=== PATIENT | female | born 1985 | race Caucasian/White ===

== ENCOUNTER 2020-04-23 22:14 | Emergency (ER) | payer MEDICAID, OTHER, SELFPAY ==
[2020-04-23 22:15] VITALS: BP 135/87; PULSE 93; RESP 20; TEMP 36.8; O2SAT 100
--- NOTE | 2020-04-23 22:40 | DI.CT.S_ITS ---
PROCEDURE: CT HEAD/BRAIN WO CON INDICATIONS: Occipitap/frontal headache. H/O MS. TECHNIQUE: Noncontrast 4.5 mm thick angled axial sections acquired from the foramen magnum to the vertex, with coronal and sagittal reformats. For radiation dose reduction, the following was used: automated exposure control, adjustment of mA and/or kV according to patient size. COMPARISON: [facility], CT, HEAD WITHOUT CONTRAST, 07/27/2008, 12:51. FINDINGS: Image quality: Excellent. CSF spaces: Basal cisterns are patent. No extra-axial fluid collections. Ventricles are normal in size and shape. Brain: No midline shift. No intracranial masses or hemorrhage. Lindsey-white matter interface is normal. Skull and face: Calvarium and visualized facial bones are intact, without suspicious lesions. Sinuses: Visualized sinuses and mastoids are clear. IMPRESSION: No acute intracranial disease process. Dictated by: Idalmis Jay MD, PhD on 04/24/2020 at 7:10 Approved by: Idalmis Jay MD, PhD on 04/24/2020 at 7:11
--- NOTE | 2020-04-23 22:41 | ED_ITS ---
HPI - Headache General Chief Complaint: Headache Stated Complaint: head pressure Time Seen by Provider: 04/23/20 22:31 Source: patient Mode of arrival: Wheelchair Limitations: no limitations History of Present Illness HPI Narrative: The patient complains of head pressure for 3 days. She has facial pain, but she also has acceptable pain. She has had no recent fever, sore throat or changing cough. She is a smoker, she has occasional dry cough. She denies ear pressure, but does have sinus pressure. She has no neck stiffness. She has a history of optic neuritis, she is nearly blind. She has chest discomfort. She has no abdominal discomfort, no nausea vomiting. She has no focal numbness or weakness. She has a local PCM. She has not seen her neurologist in [place] for over a year. She is currently on no medications. Related Data Home Medications Medication Instructions Recorded Confirmed [BCP] #0 07/28/08 Previous Rx's Medication Instructions Recorded ibuprofen 600 mg PO Q6-8H PRN #60 tab 04/24/20 ondansetron 4 mg PO Q4H PRN #20 tab 04/24/20 Allergies Allergy/AdvReac Type Severity Reaction Status Date / Time No Known Drug Allergies Allergy Verified 04/23/20 22:41 Review of Systems Review of Systems ROS Unobtainable: All systems reviewed & are unremarkable except as noted in HPI and below Constitutional Constitutional: Denies body ache(s), Denies chills, Reports fatigue, Denies fever(s), Reports headache(s) and Denies weakness Eyes Eyes: Reports as per HPI ENT Ears, Nose, Mouth, and Throat: Denies vertigo, Denies dizziness, Denies otalgia, Reports headache(s) and Denies sore throat Cardiovascular Cardiovascular: Denies chest pain, Denies syncope, Denies rapid heart rate and Denies dyspnea Respiratory Respiratory: Denies change in phlegm color, Denies chest congestion, Reports cough, Denies pain with cough and Denies dyspnea Gastrointestinal Gastrointestinal: Denies abdominal pain, Denies change in bowel habits, Denies diarrhea, Denies nausea and Denies vomiting Genitourinary Genitourinary: Denies dysuria Genitourinary: Denies dysuria Musculoskeletal Musculoskeletal: Denies back pain and Denies arthralgias Integumentary/Breasts Skin/Breast: Reports pruritus, Denies erythema, Denies rash and Reports wounds Neurologic Neurologic: Denies vertigo, Denies dizziness, Denies syncope, Reports headache(s) and Denies weakness Endocrine Endocrine: Reports fatigue Patient History Medical History (Updated 04/24/20 @ 00:28 by Blayne Anne MD) Multiple sclerosis (Acute) Optic neuritis (Acute) Surgical History (Updated 04/23/20 @ 22:44 by Blayne Anne MD) No significant past surgical history (Acute) Social History Smoking Status: Current every day smoker Smoking Status: Current every day smoker alcohol intake frequency: a few times a month Substance Use Type: marijuana Exam Initial Vital Signs Initial Vital Signs: Vital Signs Temperature 98.3 F 04/23/20 22:15 Pulse Rate 93 H 04/23/20 22:15 Respiratory Rate 20 04/23/20 22:15 Blood Pressure 135/87 04/23/20 22:15 Pulse Oximetry 100 04/23/20 22:15 Const General: cooperative and well developed Nutritional Appearance: well nourished [facility] Head: normocephalic and atraumatic Ears: TM's normal bilaterally Nose: nares normal Face and sinus: sinus tenderness ethmoid and maxillary Mouth: oral mucosae normal Throat: posterior oropharynx normal Eyes Cornea: other (Not clearly visualized) Pupils: PERRL Other: She can see shadows only. Neck Neck: normal visual inspection, supple and No tender Resp Effort & Inspection: normal respiratory effort and able to speak in complete sentences Auscultation: clear to auscultation bilaterally Cardio Rate: regular rate Rhythm: regular rhythm Heart Sounds: S1 normal, S2 normal, no click, no gallops, no murmurs and no rubs Pulses: normal peripheral pulses GI Inspection: non-distended Palpation: soft, no hepatosplenomegaly and No tender Auscultation: normal bowel sounds Back/Spine/Pelvis Back: No back tenderness Skin General: no rashes or lesions noted, No jaundice and No petechiae Neuro General: patient alert, patient oriented x3, gait normal and no focal motor deficits Speech: speech normal Extrem General: full ROM and no clubbing, cyanosis or edema Psych Appearance: grossly normal Mental Status: mental status grossly normal Course Course Course Narrative: Her headache has resolved with IV Toradol, Reglan and Benadryl and IV fluids. Her head CT is normal. She is discharged on Motrin and Zofran. Orders Ordered: ED Orders 04/23/20 22:40 CT head/brain wo con Stat 04/23/20 22:41 Complete Blood Count AUTO DIFF Stat Comprehensive Metabolic Panel Stat Discontinued Medications Diphenhydramine HCl (Benadryl) 25 mg IV NOW ONE Stop: 04/23/20 22:40 Last Admin: 04/23/20 23:05 Dose: 25 mg Documented by: FARRAH Sodium Chloride (Normal Saline 0.9%) 1,000 mls @ 1,000 mls/hr IV BOLUS ONE Stop: 04/23/20 23:38 Last Infusion: 04/24/20 00:26 Dose: 1,000 mls/hr Documented by: Admin: 04/23/20 23:05 Dose: 1,000 mls/hr Documented by: FARRAH Ketorolac Tromethamine (Toradol) 30 mg IV NOW ONE Stop: 04/23/20 22:40 Last Admin: 04/23/20 23:05 Dose: 30 mg Documented by: FARRAH Metoclopramide HCl (Reglan) 10 mg IV NOW ONE Stop: 04/23/20 22:40 Last Admin: 04/23/20 23:05 Dose: 10 mg Documented by: FARRAH Vital Signs Vital signs: Vital Signs - 8 hr 04/23/20 22:15 04/24/20 00:39 Temperature 98.3 F Pulse Rate 93 H 87 Respiratory Rate 20 18 Blood Pressure 135/87 108/56 L Pulse Oximetry 100 99 MDM - Headache Lab Data Result diagrams: 04/23/20 22:41 04/23/20 22:41 Labs: Lab Results 04/23/20 04/23/20 Range/Units 22:41 22:41 WBC 6.9 (4.5-11.0) X10^3/uL RBC 4.55 (4.0-5.2) X10^6/uL Hgb 13.8 (12.0-16.0) g/dL Hct 41.4 (36-46) % MCV 91.1 (80-100) fL MCH 30.4 (26-34) PG MCHC 33.4 (30-36) % RDW 12.5 (11.6-14.8) % Plt Count 297 (150-400) X10^3/uL Neut % (Auto) Not Reportable Lymph % (Auto) Not Reportable [place] % (Auto) Not Reportable Eos % (Auto) Not Reportable Baso % (Auto) Not Reportable Lymph # (Auto) Not Reportable [place] # (Auto) Not Reportable Baso # (Auto) Not Reportable Total Counted 100 Seg Neutrophils % 57.0 (38-70) % Band Neutrophils % 5.0 (3-7) % Lymphocytes % (Manual) 18.0 L (25-45) % Atypical Lymphs % 9.0 H ( - 0) % Monocytes % (Manual) 8.0 (2-11) % Eosinophils % (Manual) 3.0 (2-4) % Neutrophils # (Manual) 4278 (9787-5552) /uL RBC Morphology Normal morphology Sodium 136 L (137-145) mmol/L Potassium 3.8 (3.4-5.1) mmol/L Chloride 106 (98-107) mmol/L Carbon Dioxide 25 (22-32) mmol/L BUN 8 (7-17) mg/dL Creatinine 0.54 (0.52-1.04) mg/dL Estimated GFR > 60.0 (>60) mL/min BUN/Creatinine Ratio 14.8 (6-22) Glucose 113 H (70-100) mg/dL Calcium 8.6 (8.4-10.2) mg/dL Total Bilirubin 0.6 (0.2-1.3) mg/dL AST 37 H (14-36) IU/L ALT 28 (<35) IU/L Alkaline Phosphatase 49 (38-126) U/L Total Protein 7.2 (6.3-8.2) g/dL Albumin 4.0 (3.5-5.0) g/dL Globulin 3.2 (1.7-4.1) g/dL Albumin/Globulin Ratio 1.3 (1.0-2.8) Imaging Data CT scan - head: Radiologist's Impression: No acute findings Discharge Plan Departure Patient Disposition: Home Clinical Impression: Multiple sclerosis Headache Qualifiers: Headache type: tension-type Headache chronicity pattern: acute headache Intractability: intractable Qualified Code(s): G44.201 - Tension-type headache, unspecified, intractable Discharge Date/Time: 04/24/20 00:41 Instructions: DI for Headache Activity Restrictions/Additional Instructions: Ibuprofen every 6-8 hours as needed for headache. Zofran every 4-6 hours as needed for nausea. Rest, drink plenty of fluids. I would recommend you arrange follow-up evaluation with your primary care do ctor, and your neurologist. Return here as needed. Prescriptions: New ibuprofen 600 mg tablet 600 mg PO Q6-8H PRN (Reason: pain) Qty: 60 RF: 0 ondansetron 4 mg tablet,disintegrating 4 mg PO Q4H PRN (Reason: nausea and vomiting) Qty: 20 RF: 0 No Action [BCP] Qty: 0 RF: 0
[2020-04-23 22:53] LABS: Hematocrit 41.4 % (36-46); Hemoglobin 13.8 g/dL (12.0-16.0); Mean Corpuscular HGB Conc 33.4 % (30-36); Mean Corpuscular Hemoglobin 30.4 PG (26-34); Mean Corpuscular Volume 91.1 fL (80-100); Platelet Count 297 X10^3/uL (150-400); Red Blood Cell Count 4.55 X10^6/uL (4.0-5.2); Red Cell Distribution Width 12.5 % (11.6-14.8); White Blood Cell Count 6.9 X10^3/uL (4.5-11.0)
[2020-04-23 22:54] LABS: Add Manual Diff / Slide Review YES
[2020-04-23 23:05] LABS: Alanine Aminotransferase 28 IU/L (<35); Albumin Globulin Ratio 1.3 (1.0-2.8); Alkaline Phosphatase 49 U/L (38-126); BUN Creatinine Ratio 14.8 (6-22); Bilirubin Total 0.6 mg/dL (0.2-1.3); Blood Urea Nitrogen 8 mg/dL (7-17); Calcium 8.6 mg/dL (8.4-10.2); Carbon Dioxide 25 mmol/L (22-32); Chloride 106 mmol/L (98-107); Estimated Glomerular Filt Rate > 60.0 mL/min (>60); Globulin 3.2 g/dL (1.7-4.1); Glucose 113 mg/dL (70-100); Sodium 136 mmol/L (137-145); Total Protein 7.2 g/dL (6.3-8.2)
[2020-04-23] MEDS: diphenhydrAMINE 50 MG/ML VIAL 25 MG IV (23:05)
[2020-04-23] MEDS: KETOROLAC 60 MG/2 ML VIAL 30 MG IV (23:05)
[2020-04-23] MEDS: METOCLOPRAMIDE 10 MG/2 ML INJ IV (23:05)
[2020-04-23] MEDS: SODIUM CHLORIDE 0.9% 1,000 ML 1000 ML IV (23:05)
[2020-04-23 23:07] LABS: HEMOLYSIS 81 (0-50)
[2020-04-23 23:08] LABS: Aspartate Aminotransferase 37 IU/L (14-36)
[2020-04-23 23:09] LABS: Potassium 3.8 mmol/L (3.4-5.1)
[2020-04-24 00:39] VITALS: BP 108/56; PULSE 87; RESP 18; O2SAT 99
[2020-04-24 00:48] LABS: Neutrophils Absolute Manual 4278 /uL (3000-5900); Total Cells Counted 100
[2020-04-24 00:49] LABS: RBC Morphology Normal Morphology
== END 2020-04-24 00:41 | disposition home or self-care (01) ==
PROVIDERS: Emergency Provider Emergency Medicine
DX: G35 Multiple sclerosis (principal); G44.201 Tension-type headache, unspecified, intractable; J41.0 Simple chronic bronchitis
CPT/HCPCS: 36415; 70450; 80053; 85025; 93005; 93010; 96361; 96374; 96375; 99284; J1200; J1885; J2765

== ENCOUNTER 2021-01-01 23:57 | Emergency (ER) | payer OTHER, MEDICAID, SELFPAY ==
[2021-01-02 00:11] VITALS: PULSE 72; RESP 22; TEMP 37.2; O2SAT 98
--- NOTE | 2021-01-02 00:23 | DI.CT.S_ITS ---
PROCEDURE: CT HEAD/BRAIN WO CON INDICATIONS: loss of vision in Left eye TECHNIQUE: Noncontrast 4.5 mm thick angled axial sections acquired from the foramen magnum to the vertex, with coronal and sagittal reformats. For radiation dose reduction, the following was used: automated exposure control, adjustment of mA and/or kV according to patient size. COMPARISON: [facility], CT, CT HEAD/BRAIN WO CON, 04/23/2020, 22:50. [facility], CT, HEAD WITHOUT CONTRAST, 07/27/2008, 12:51. FINDINGS: Image quality: Excellent. CSF spaces: Basal cisterns are patent. No extra-axial fluid collections. Ventricles are normal in size and shape. Brain: No midline shift. No intracranial masses or hemorrhage. Lindsey-white matter interface is normal. Skull and face: Calvarium and visualized facial bones are intact, without suspicious lesions. Sinuses: Visualized sinuses and mastoids are clear. IMPRESSION: No acute disease. No orbit abnormality is identified. Stroke protocol MRI may be warranted. Dictated by: Harshad Souza M.D. on 01/02/2021 at 7:24 Approved by: Harshad Souza M.D. on 01/02/2021 at 7:24
--- NOTE | 2021-01-02 00:49 | ED.NEUROSD ---
HPI - Neuro Symptoms/Deficit General Chief Complaint: Neuro Symptoms/Deficit Stated Complaint: sudden loss of sight this morning Time Seen by Provider: 01/02/21 00:19 Source: patient Mode of arrival: Ambulatory History of Present Illness HPI Narrative: Patient is a 35-year-old female. States she has a history of multiple sclerosis. 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 in her left eye. She states that the blindness in her right eye has been secondary to optic neuritis. She does not see a MS specialist. Does not see a neurologist. Does not have a primary doctor. She states that at some point after waking up this morning the ?tunnel vision? in her left eye started to become worse. She states that it has progressed throughout the day until approximately 2 hours prior to arrival in the emergency department when she stated that her left eye went completely black. That is when she thought that she should come in to be evaluated. She does describe a slight headache. There has been no trauma. She reports no other symptoms. On Anticoagulants: No Related Data Home Medications Medication Instructions Recorded Confirmed [BCP] #0 07/28/08 Previous Rx's Medication Instructions Recorded ibuprofen 600 mg tablet 600 mg PO Q6-8H PRN #60 tab 04/24/20 ondansetron 4 mg disintegrating 4 mg PO Q4H PRN #20 tab 04/24/20 tablet Allergies Allergy/AdvReac Type Severity Reaction Status Date / Time No Known Drug Allergies Allergy Verified 04/23/20 22:41 Review of Systems Constitutional Constitutional: Denies fatigue and Reports headache(s) Eyes Eyes: Reports as per HPI and Reports loss of vision Comments: New loss of vision left eye ENT Ears, Nose, Mouth, and Throat: Denies vertigo, Denies dizziness and Reports headache(s) Cardiovascular Comments: Denies chest pain Respiratory Comments: Denies shortness of breath Gastrointestinal Comments: Denies abdominal pain Musculoskeletal Musculoskeletal: Reports system reviewed and no additional complaints, except as documented, Denies numbness and Denies tingling Integumentary/Breasts Skin/Breast: Reports system reviewed and no additional complaints, except as documented Neurologic Neurologic: Denies behavioral changes, Denies confusion, Denies vertigo, Denies dizziness, Reports headache(s), Reports loss of vision, Denies memory loss, Denies numbness and Denies tingling Psychiatric Psychiatric: Denies behavioral changes, Denies confusion and Denies memory loss Endocrine Endocrine: Denies fatigue Hematologic/Lymphatic On Anticoagulants: No Allergic/Immunologic Allergic/Immunologic: Reports system reviewed and no additional complaints, except as documented Patient History Medical History Multiple sclerosis Optic neuritis Surgical History (Updated 04/23/20 @ 22:44 by Blayne Anne MD) No significant past surgical history Social History Smoking Status: Current every day smoker Smoking Status: Current every day smoker alcohol intake frequency: a few times a month Substance Use Type: marijuana Exam Initial Vital Signs Initial Vital Signs: Vital Signs Temperature 98.9 F 01/02/21 00:11 Pulse Rate 72 01/02/21 00:11 Respiratory Rate 22 01/02/21 00:11 Pulse Oximetry 98 01/02/21 00:11 Const General: cooperative, healthy appearing and comfortable HENMT Head: normal to inspection and normocephalic Ears: hearing grossly normal bilaterally Face and sinus: normal facial exam Eyes Other: Patient has a visual acuity of 0 bilaterally. She only reports she occasionally see some ?conner ?visions in her left eye otherwise there is no vision in either eye. Her pupils are 8 mm and has very minimal if any reaction to light. She reports no ability to see the light. She can move her eyes in all directions. Interocular pressure in right eye was 16. Interocular pressure left eye was 17. Conjunctivae unremarkable. Sclera unremarkable. Eyelids unremarkable. Resp Effort & Inspection: normal respiratory effort Cardio Rate: regular rate Rhythm: regular rhythm Skin General: no rashes or lesions noted Neuro General: patient alert, patient awake and patient oriented x3 Cognition: normal cognition Speech: speech normal Motor: muscle tone normal throughout Sensory Exam: no sensory deficits noted Extrem General: normal to inspection and capillary refill normal Psych Appearance: grossly normal and well kempt Course Orders Ordered: ED Orders 01/02/21 00:23 CT head/brain wo con Stat 01/02/21 01:04 Basic Metabolic Panel Stat C-Reactive Protein Quant Stat Complete Blood Count AUTO DIFF Stat Erythrocyte Sedimentation Rate Stat Test Serum,Qual Stat Vital Signs Vital signs: Vital Signs - 8 hr 01/02/21 00:11 07/08/21 01:11 Temperature 98.9 F Pulse Rate 72 72 Respiratory Rate 22 18 Blood Pressure 119/70 Pulse Oximetry 98 97 MDM - Neuro Symptoms/Deficit Lab Data Attestation: I reviewed the patient's lab results. Result diagrams: 01/02/21 01:04 01/02/21 01:04 Labs: Lab Results 01/02/21 01/02/21 01/02/21 Range/Units 01:04 01:04 01:04 WBC 7.5 (4.5-11.0) X10^3/uL RBC 4.59 (4.0-5.2) X10^6/uL Hgb 14.5 (12.0-16.0) g/dL Hct 42.6 (36-46) % MCV 92.8 (80-100) fL MCH 31.5 (26-34) PG MCHC 33.9 (30-36) % RDW 12.0 (11.6-14.8) % Plt Count 328 (150-400) X10^3/uL Neut % (Auto) 59.4 (50-75) % Lymph % (Auto) 28.1 (25-40) % [place] % (Auto) 7.1 (3-14) % Eos % (Auto) 2.5 (2-4) % Baso % (Auto) 2.9 H (0-2) % Neut # (Auto) 4400 (1179-8120) /uL Lymph # (Auto) 2100 (0755-0486) /uL [place] # (Auto) 500 (0-900) /uL Eos # (Auto) 200 (0-450) /uL Baso # (Auto) 200 H (0-100) /uL ESR 16 (0-20) MM/HR Sodium (137-145) mmol/L Potassium (3.4-5.1) mmol/L Chloride (98-107) mmol/L Carbon Dioxide (22-32) mmol/L BUN (7-17) mg/dL Creatinine (0.52-1.04) mg/dL Estimated GFR (>60) mL/min BUN/Creatinine Ratio (6-22) Glucose (70-100) mg/dL Calcium (8.4-10.2) mg/dL C-Reactive Protein < 0.5 (<1.0) mg/dL Serum , Qual (Negative) 01/02/21 01/02/21 Range/Units 01:04 01:04 WBC (4.5-11.0) X10^3/uL RBC (4.0-5.2) X10^6/uL Hgb (12.0-16.0) g/dL Hct (36-46) % MCV (80-100) fL MCH (26-34) PG MCHC (30-36) % RDW (11.6-14.8) % Plt Count (150-400) X10^3/uL Neut % (Auto) (50-75) % Lymph % (Auto) (25-40) % [place] % (Auto) (3-14) % Eos % (Auto) (2-4) % Baso % (Auto) (0-2) % Neut # (Auto) (0869-2262) /uL Lymph # (Auto) (7514-5669) /uL [place] # (Auto) (0-900) /uL Eos # (Auto) (0-450) /uL Baso # (Auto) (0-100) /uL ESR (0-20) MM/HR Sodium 138 (137-145) mmol/L Potassium 4.1 (3.4-5.1) mmol/L Chloride 109 H (98-107) mmol/L Carbon Dioxide 25 (22-32) mmol/L BUN 14 (7-17) mg/dL Creatinine 0.82 (0.52-1.04) mg/dL Estimated GFR > 60.0 (>60) mL/min BUN/Creatinine Ratio 17.1 (6-22) Glucose 101 H (70-100) mg/dL Calcium 9.0 (8.4-10.2) mg/dL C-Reactive Protein (<1.0) mg/dL Serum , Qual Negative (Negative) Imaging Data CT scan - head: Radiologist's Impression: No acute changes MDM Narrative Medical decision making narrative: Patient is alert oriented x3. Has a normal neurologic exam other than a new loss of vision in her left eye which seems to have progressively worsened since this morning. Her ESR/CRP are all unremarkable. Her head CT shows no acute pathology. Her pupils are essentially fixed and dilated bilateral with normal interocular pressures. The rest of her eye exam is unremarkable. I did discuss the case with Dr. Resendiz with Ophthalmology at [facility] who stated that the patient should be transferred to their facility for their evaluation. He is the accepting provider. He recommended holding on any steroids for now. I did discuss this with the patient and her . They state that they are comfortable driving by private vehicle. I do not feel this is unreasonable. They were given instructions and understands the importance of going directly to [facility] Emergency Department. Discharge Plan Departure Patient Disposition: [facility] Clinical Impression: Binocular vision loss Activity Restrictions/Additional Instructions: Your to go directly to the emergency department at [facility] in [place] for further evaluation of your left eye vision loss. Prescriptions: No Action [BCP] Qty: 0 RF: 0 ibuprofen 600 mg tablet 600 mg PO Q6-8H PRN (Reason: pain) Qty: 60 RF: 0 ondansetron 4 mg tablet,disintegrating 4 mg PO Q4H PRN (Reason: nausea and vomiting) Qty: 20 RF: 0
[2021-01-02 01:11] VITALS: BP 119/70; PULSE 72; RESP 18; O2SAT 97
[2021-01-02 01:20] LABS: BUN Creatinine Ratio 17.1 (6-22); Blood Urea Nitrogen 14 mg/dL (7-17); Carbon Dioxide 25 mmol/L (22-32); Chloride 109 mmol/L (98-107); Estimated Glomerular Filt Rate > 60.0 mL/min (>60); Glucose 101 mg/dL (70-100); HEMOLYSIS < 15 (0-50); Potassium 4.1 mmol/L (3.4-5.1); Sodium 138 mmol/L (137-145)
[2021-01-02 01:23] LABS: C-Reactive Protein Quant < 0.5 mg/dL (<1.0)
[2021-01-02 01:29] LABS: Add Manual Diff / Slide Review NO; Basophils Absolute Auto 200 /uL (0-100); Basophils Percent Auto 2.9 % (0-2); Eosinophils Absolute Auto 200 /uL (0-450); Eosinophils Percent Auto 2.5 % (2-4); Hematocrit 42.6 % (36-46); Hemoglobin 14.5 g/dL (12.0-16.0); Lymphocytes Absolute Auto 2100 /uL (1100-4500); Lymphocytes Percent Auto 28.1 % (25-40); Mean Corpuscular HGB Conc 33.9 % (30-36); Mean Corpuscular Hemoglobin 31.5 PG (26-34); Mean Corpuscular Volume 92.8 fL (80-100); Monocytes Absolute Auto 500 /uL (0-900); Monocytes Percent Auto 7.1 % (3-14); Neutrophils Absolute Auto 4400 /uL (1500-7000); Neutrophils Percent Auto 59.4 % (50-75); Platelet Count 328 X10^3/uL (150-400); Red Blood Cell Count 4.59 X10^6/uL (4.0-5.2); White Blood Cell Count 7.5 X10^3/uL (4.5-11.0)
[2021-01-02 01:38] LABS: Pregnancy Test Serum,Qual Negative (Negative)
[2021-01-02 01:56] LABS: Erythrocyte Sedimentation Rate 16 MM/HR (0-20)
[2021-01-02 03:15] VITALS: BP 119/70; PULSE 66; RESP 18; O2SAT 97
--- NOTE | 2021-01-02 03:40 | PC.NURSE ---
[facility] report form faxed per protocol.
== END 2021-01-02 02:15 | disposition short-term general hospital (02) ==
PROVIDERS: Emergency Provider Emergency Medicine
DX: H54.3 Unqualified visual loss, both eyes (principal); R51.9 Headache, unspecified
CPT/HCPCS: 36415; 70450; 80048; 84703; 85025; 85651; 86140; 99284

== ENCOUNTER → 2021-03-26 09:21 | Outpatient (CLI) | payer OTHER, MEDICAID, SELFPAY ==
--- NOTE | 2021-03-26 10:20 | DI.CT.S_ITS ---
PROCEDURE: CT CHEST ABD PEL W CON INDICATIONS: Recurrent optic neuritis TECHNIQUE: After the administration of oral and intravenous contrast, axial sections acquired from the supraclavicular neck to the pubic symphysis. Coronal and sagittal reformats were performed. For radiation dose reduction, the following was used: automated exposure control, adjustment of mA and/or kV according to patient size. COMPARISON: None. FINDINGS: Image quality: Excellent. CHEST: Lower Neck: No enlarged lymph nodes. Thyroid: Within normal limits. Axillae: No enlarged lymph nodes. Chest Wall: Unremarkable. Lungs and Airways: No consolidation or suspicious nodules. Pleura: No pneumothorax or pleural effusions. Heart: Heart size is normal. No pericardial effusion. Thoracic Vessels: The aorta and pulmonary arteries demonstrate normal size. Mediastinum and [place]: No enlarged lymph nodes. Esophagus: No wall thickening. No hiatal hernia. ABDOMEN: Liver: Unremarkable. Gallbladder: The gallbladder demonstrates at least 1 layering gallstone, as on series 2, image 65. Biliary ducts: Unremarkable. Pancreas: Unremarkable. Spleen: Unremarkable. Incidental note is made of an accessory splenule along the hilum of the primary spleen. Adrenal Glands: Unremarkable. Kidneys and Ureters: Unremarkable. Stomach and Bowel: Stomach, small bowel loops, and colon are unremarkable. A normal appendix is incidentally noted. Peritoneum: No abnormal intraperitoneal fluid. No free air. Ventral Wall: No hernia. Abdominal Nodes: No retroperitoneal or mesenteric adenopathy by size criteria. Vessels: Aorta and inferior vena cava are normal in size. PELVIS: Pelvic Organs: The uterus appears normal for age. No adnexal masses are seen. Bladder: Unremarkable. Pelvic Nodes: No enlarged lymph nodes. Miscellaneous: No inguinal hernias are seen. Bones: Unremarkable. IMPRESSION: No significant abnormality is seen. Incidental note is made of: Gallstone Accessory splenule Normal appendix Dictated by: Dano Rucker M.D. on 03/26/2021 at 13:20 Approved by: Dano Rucker M.D. on 03/26/2021 at 13:23
== END ==
DX: H46.9 Unspecified optic neuritis (principal); H54.3 Unqualified visual loss, both eyes; K80.20 Calculus of gallbladder without cholecystitis without obstruction; F41.9 Anxiety disorder, unspecified; Z51.81 Encounter for therapeutic drug level monitoring
CPT/HCPCS: 71260; 74177

== ENCOUNTER 2021-04-11 12:07 | Emergency (ER) | payer OTHER, MEDICAID, SELFPAY ==
[2021-04-11] VITALS (10 sets, daily range): BP systolic 134–145; BP diastolic 76–85; PULSE 55–73; RESP 14–25; TEMP 35.7; O2SAT 87–100; BMI 38.2
--- NOTE | 2021-04-11 13:52 | DI.CT.S_ITS ---
PROCEDURE: CT HEAD/BRAIN WO CON INDICATIONS: head pain,recent subdural,n/v TECHNIQUE: Noncontrast 4.5 mm thick angled axial sections acquired from the foramen magnum to the vertex, with coronal and sagittal reformats. For radiation dose reduction, the following was used: automated exposure control, adjustment of mA and/or kV according to patient size. COMPARISON: [facility], CT, CT HEAD/BRAIN WO CON, 01/02/2021, 0:34. FINDINGS: Image quality: Excellent. CSF spaces: Basal cisterns are patent. Widening of the bilateral cerebral CSF spaces measuring up to 5.9 mm, likely reflecting chronic subdural hematoma/hygromas. The ventricles are symmetric in size and shape. Brain: No intraparenchymal hemorrhage or mass. Skull and face: Widening of the left lambdoid suture, compatible with a skull base fracture. Sinuses: Mucosal thickening of the sphenoid and right maxillary sinuses. IMPRESSION: 1. No acute intracranial hemorrhage. 2. Widening of the bilateral cerebral CSF spaces as detailed above, compatible with chronic subdural hematoma/hygromas. 3. Widening of the left lambdoid suture, compatible with a skull base fracture. Findings were conveyed to the ordering physician at the time of dictation. Dictated by: Adriel Betancourt M.D. on 04/11/2021 at 14:02 Approved by: Adriel Betancourt M.D. on 04/11/2021 at 14:11
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
[2021-04-11] MEDS: SODIUM CHLORIDE 0.9% 1,000 ML 1000 ML IV (16:28)
[2021-04-11] MEDS: DEXAMETHASONE 10 MG/ML VIAL IV (16:29)
[2021-04-11] MEDS: METOCLOPRAMIDE 10 MG/2 ML INJ IV (16:30)
[2021-04-11] MEDS: diphenhydrAMINE 50 MG/ML VIAL 25 MG IV (16:30)
[2021-04-11] MEDS: KETOROLAC 30 MG/ML VIAL 15 MG IV (16:30)
[2021-04-11 16:52] LABS: Alanine Aminotransferase 29 IU/L (<35); Albumin Globulin Ratio 1.4 (1.0-2.8); Alkaline Phosphatase 65 U/L (38-126); Aspartate Aminotransferase 35 IU/L (14-36); BUN Creatinine Ratio 14.9 (6-22); Bilirubin Total 0.7 mg/dL (0.2-1.3); Blood Urea Nitrogen 7 mg/dL (7-17); Calcium 8.6 mg/dL (8.4-10.2); Carbon Dioxide 21 mmol/L (22-32); Chloride 93 mmol/L (98-107); Estimated Glomerular Filt Rate > 60.0 mL/min (>60); Globulin 2.8 g/dL (1.7-4.1); Glucose 117 mg/dL (70-100); Potassium 4.1 mmol/L (3.4-5.1); Sodium 121 mmol/L (137-145); Total Protein 6.8 g/dL (6.3-8.2)
[2021-04-11 16:56] LABS: HEMOLYSIS 75 (0-50)
[2021-04-11 17:28] LABS: Add Manual Diff / Slide Review NO; Basophils Absolute Auto 100 /uL (0-100); Basophils Percent Auto 0.6 % (0-2); Eosinophils Absolute Auto 100 /uL (0-450); Eosinophils Percent Auto 0.7 % (2-4); Hematocrit 40.3 % (36-46); Hemoglobin 13.6 g/dL (12.0-16.0); Lymphocytes Absolute Auto 2100 /uL (1100-4500); Lymphocytes Percent Auto 18.3 % (25-40); Mean Corpuscular HGB Conc 33.7 % (30-36); Mean Corpuscular Hemoglobin 30.3 PG (26-34); Mean Corpuscular Volume 89.8 fL (80-100); Monocytes Absolute Auto 800 /uL (0-900); Monocytes Percent Auto 6.7 % (3-14); Neutrophils Absolute Auto 8500 /uL (1500-7000); Neutrophils Percent Auto 73.7 % (50-75); Platelet Count 387 X10^3/uL (150-400); Red Blood Cell Count 4.48 X10^6/uL (4.0-5.2); White Blood Cell Count 11.5 X10^3/uL (4.5-11.0)
--- NOTE | 2021-04-11 17:52 | PC.NURSE ---
Patient is leaving against medical advice. Advised that provider is speaking with another provider/hospital regarding condition but patient asserts that she wants to leave.
== END 2021-04-11 17:52 | disposition left against medical advice (07) ==
PROVIDERS: Emergency Provider Emergency Medicine
DX: R51.9 Headache, unspecified (principal); E87.1 Hypo-osmolality and hyponatremia; R11.2 Nausea with vomiting, unspecified; V09.9XXD Pedestrian injured in unspecified transport accident, subsequent encounter; Z53.29 Procedure and treatment not carried out because of patient's decision for other reasons
CPT/HCPCS: 36415; 70450; 80053; 85025; 96361; 96374; 96375; 99284; J1100; J1200; J1885; J2765

== ENCOUNTER → 2021-05-21 13:50 | Outpatient (CLI) | payer OTHER, SELFPAY ==
--- NOTE | 2021-05-21 13:53 | DI.CT.S_ITS ---
PROCEDURE: CT SINUS SCREEN WO CON INDICATIONS: Anosmia TECHNIQUE: Noncontrast 3.0 mm axial images acquired from the frontal sinuses to the mid-sella, with coronal and sagittal reformats. For radiation dose reduction, the following was used: automated exposure control, adjustment of mA and/or kV according to patient size. COMPARISON: [facility], CT, CT HEAD/BRAIN WO CON, 01/02/2021, 0:34. [facility], CT, CT HEAD/BRAIN WO CON, 04/23/2020, 22:50. [facility], CT, CT HEAD/BRAIN WO CON, 04/11/2021, 13:57. FINDINGS: Image quality: Excellent. Maxillary Sinuses: No bony remodeling or destruction. There is a mucous retention cyst seen within the inferior medial right maxillary sinus. The maxillary sinuses otherwise appear clear. Ethmoid Air Cells: No bony remodeling or destruction. Sinuses are clear. Sphenoid Sinuses: No bony remodeling or destruction. Sinuses are clear. Frontal Sinuses: No bony remodeling or destruction. Sinuses are clear. Ostiomeatal Complexes: Ostiomeatal complexes are patent. No Anup cells. Miscellaneous: Visualized intra-orbital contents are normal. No hanna bullosa or paradoxical turbinate curvature. There is minimal to mild rightward nasal septal deviation. IMPRESSION: No fractures or other significant abnormalities are seen to explain the patient's presenting history anosmia. The previously seen skull base fractures outside of the field of view of this study. Dictated by: Dano Rucker M.D. on 05/21/2021 at 13:49 Approved by: Dano Rucker M.D. on 05/21/2021 at 13:51
== END ==
PROVIDERS: PCP Family Medicine; Referring Provider Otolaryngology; Visit Provider Otolaryngology
DX: J32.4 Chronic pansinusitis (principal); R43.0 Anosmia
CPT/HCPCS: 70486

== ENCOUNTER → 2021-06-18 13:03 | Outpatient (CLI) | payer OTHER, SELFPAY ==
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
== END ==
PROVIDERS: PCP Family Medicine; Referring Provider Nurse Practitioner Family; Visit Provider Nurse Practitioner Family
DX: S06.5X9A Traumatic subdural hemorrhage with loss of consciousness of unspecified duration, initial encounter (principal)
CPT/HCPCS: 70450

== ENCOUNTER 2021-12-03 12:53 | Emergency (ER) | payer OTHER, MEDICAID, SELFPAY ==
--- NOTE | 2021-12-03 13:04 | DI.RAD.S_ITS ---
PROCEDURE: XR KNEE RT 3V INDICATIONS: fall TECHNIQUE: 3 views of the knee were acquired. COMPARISON: None. FINDINGS: Bones: Postsurgical changes compatible with ORIF of lateral tibial plateau fracture. Cortical step-off noted in lateral tibial plateau. No suspicious bony lesions. Soft tissues: No joint effusion. No suspicious soft tissue calcifications. IMPRESSION: Lateral tibial plateau fracture of indeterminate acuity. Status post ORIF of tibia fracture. Dictated by: Idalmis Jay MD, PhD on 12/03/2021 at 13:38 Approved by: Idalmis Jay MD, PhD on 12/03/2021 at 13:40
[2021-12-03 13:05] VITALS: BP 137/81; PULSE 73; RESP 18; TEMP 36.3; O2SAT 98; BMI 39.9
--- NOTE | 2021-12-03 13:09 | ED.LOWEXIN ---
HPI - Extremity Injury (Lower) <MEETA Smith - Last Filed: 12/03/21 18:28> General Chief Complaint: Extremity Injury, Lower Stated Complaint: Injured knee cap, hx of leg surg/hardware last Oct Time Seen by Provider: 12/03/21 13:07 Source: patient Mode of arrival: Family Vehicle History of Present Illness HPI Narrative: This is a 36-year-old legally blind female who presents to the emergency department stating that she tripped going down the stairs while carrying a bag of groceries and fell onto her right knee yesterday. Patient states that she had surgery for a fractured tibia status post marilu placement in March 2021. She states she was told to be careful for any patellar injuries, and she is concerned about that today. She has a small abrasion on her right knee, complains of a swollen joint, and pain. She denies taking any pain medication today. States that she took ibuprofen last night. Related Data Home Medications Medication Instructions Recorded Confirmed [BCP] ##0 07/28/08 Previous Rx's Medication Instructions Recorded ibuprofen 600 mg tablet 600 mg PO Q6-8H PRN pain #60 tabs 04/24/20 ondansetron 4 mg disintegrating 4 mg PO Q4H PRN nausea and 04/24/20 tablet vomiting #20 tabs diclofenac sodium 1 % topical gel 4 g topical QID PRN knee p #100 12/03/21 grams lidocaine 5 % topical patch 1 patch topical DAILY PRN pain #15 12/03/21 (Lidoderm) ea methocarbamol 500 mg tablet 500 mg PO BEDTIME PRN muscle 12/03/21 spasms #14 tabs tramadol 50 mg tablet 50 mg PO DAILY PRN pain #14 tabs 12/03/21 Allergies Allergy/AdvReac Type Severity Reaction Status Date / Time No Known Drug Allergies Allergy Verified 12/03/21 13:08 Review of Systems <MEETA Smith - Last Filed: 12/03/21 18:28> Review of Systems Narrative: General: denies fever, chills Head/Neck: denies headache, neck pain Eyes: denies visual changes, eye pain Cardio: denies chest pain, palpitations Respiratory: denies shortness of breath, cough GI: denies abdominal pain, nausea, vomiting, or diarrhea : denies dysuria, hematuria or flank pain MSK: Endorses right knee injury yesterday with swelling and abrasion, denies weakness or swelling Skin: denies rash, itching or wound Neuro: denies numbness, tingling, dizziness Patient History <MEETA Smith - Last Filed: 12/03/21 18:28> Medical History Head injury Multiple sclerosis Optic neuritis Surgical History No significant past surgical history Social History Smoking Status: Current every day smoker Smoking Status: Current every day smoker tobacco type: cigarettes alcohol intake frequency: 0-2 drinks per day Substance Use Type: former substance user, marijuana and methamphetamine Exam <MEETA Smith - Last Filed: 12/03/21 18:28> Narrative Exam Narrative: Independently reviewed vitals signs and nursing notes. General: cooperative, comfortable, in no acute distress, well groomed Head: atraumatic, symmetrical facial expressions Neck: supple Eyes: equal round and reactive, EOMI, conjunctiva normal Nose: nares patent, no rhinorrhea Mouth/Throat: moist mucus membranes Cardiovascular: regular rate and rhythm, no peripheral edema, warm extremities Respiratory: normal effort, able to speak in complete sentences, no audible wheezing, stridor, or rales. No retractions or tachypnea. GI: abdomen soft, nontender to palpation, nondistended, no masses, no exquisite tenderness with exam, without guarding or rebound. MSK: moves all extremities, neurovascularly intact, no weakness, normal tone, right knee Benji's is negative, suprapatellar edema palpable, an abrasion on the medial aspect over the patella, no crepitus, dorsiflexion and plantar extension are intact without deficit, no distal edema, no erythema Skin: brisk capillary refill, no rash, no erythema Neuro: normal speech and cognition, A&O x3 Psych: mental status is grossly normal, congruent mood, normal affect, pleasant and cooperative Initial Vital Signs Initial Vital Signs: Vital Signs Temperature 97.4 F L 12/03/21 13:05 Pulse Rate 73 06/08/22 13:05 Respiratory Rate 18 12/03/21 13:05 Blood Pressure 137/81 12/03/21 13:05 Pulse Oximetry 98 12/03/21 13:05 Oxygen Delivery Method 12/03/21 13:05 <Deisy Isaac DO - Last Filed: 12/06/21 18:03> Initial Vital Signs Initial Vital Signs: Vital Signs Temperature 97.4 F L 12/03/21 13:05 Pulse Rate 73 12/03/21 13:05 Respiratory Rate 18 12/03/21 13:05 Blood Pressure 137/81 12/03/21 13:05 Pulse Oximetry 98 12/03/21 13:05 Oxygen Delivery Method 12/03/21 13:05 Course <MEETA Smith - Last Filed: 12/03/21 18:28> Orders Ordered: Discontinued Medications Acetaminophen (Acetaminophen 325 Mg Tablet) 975 mg PO NOW ONE Stop: 12/03/21 13:20 Last Admin: 12/03/21 13:36 Dose: 975 mg Documented By: DWIGHT Ketorolac Tromethamine (Ketorolac 30 Mg/Ml Vial) 15 mg IM NOW ONE Stop: 12/03/21 13:20 Last Admin: 12/03/21 13:36 Dose: 15 mg Documented By: DWIGHT Methocarbamol (Methocarbamol 500 Mg Tablet) 500 mg PO NOW ONE Stop: 12/03/21 13:20 Last Admin: 12/03/21 13:35 Dose: 500 mg Documented By: DWIGHT Vital Signs Vital signs: Vital Signs - 8 hr 12/03/21 13:05 12/03/21 15:26 Temperature 97.4 F L Pulse Rate 73 71 Respiratory Rate 18 16 Blood Pressure 137/81 130/81 Pulse Oximetry 98 97 <Deisy Isaac DO - Last Filed: 12/06/21 18:03> Orders Ordered: Discontinued Medications Acetaminophen (Acetaminophen 325 Mg Tablet) 975 mg PO NOW ONE Stop: 12/03/21 13:20 Last Admin: 12/03/21 13:36 Dose: 975 mg Documented By: DWIGHT Ketorolac Tromethamine (Ketorolac 30 Mg/Ml Vial) 15 mg IM NOW ONE Stop: 12/03/21 13:20 Last Admin: 06/08/22 13:36 Dose: 15 mg Documented By: DWIGHT Methocarbamol (Methocarbamol 500 Mg Tablet) 500 mg PO NOW ONE Stop: 12/03/21 13:20 Last Admin: 12/03/21 13:35 Dose: 500 mg Documented By: DWIGHT Vital Signs Vital signs: Vital Signs - 8 hr 12/03/21 13:05 12/03/21 15:26 Temperature 97.4 F L Pulse Rate 73 71 Respiratory Rate 18 16 Blood Pressure 137/81 130/81 Pulse Oximetry 98 97 MDM - Extremity Injury (Lower) <Nadya Warren, [facility] - Last Filed: 12/03/21 18:28> Imaging Data Extremity x-ray #1: Radiologist's Impression: PROCEDURE:? XR KNEE RT 3V ? INDICATIONS:? fall ? TECHNIQUE:? 3 views of the knee were acquired.? ? COMPARISON:? None. ? FINDINGS:? ? Bones:? Postsurgical changes compatible with ORIF of lateral tibial plateau fracture.? Cortical step-off noted in lateral tibial plateau.? No suspicious bony lesions.? ? Soft tissues:? No joint effusion.? No suspicious soft tissue calcifications.? ? ? IMPRESSION:? Lateral tibial plateau fracture of indeterminate acuity.? Status post ORIF of tibia fracture. ? ? Dictated by: Idalmis Jay MD, PhD on 12/03/2021 at 13:38 ? ? Approved by: Idalmis Jay MD, PhD on 12/03/2021 at 13:40 ? CT right knee: Radiologist's Impression: PROCEDURE:? CT LE RT WO CON ? INDICATIONS:? trauma to rt knee following rt lateral tibial fx w/hardware ? TECHNIQUE:? Noncontrast 1-1.5 mm axial sections acquired from the mid-patella to the proximal tibia, with coronal and sagittal reformats.? ? COMPARISON:? [facility], [facility], XR KNEE RT 3V, 12/03/2021, 13:07. ? FINDINGS:? Image quality:? Diagnostic.? Significant beam hardening artifacts from tibial surgical hardware are seen. ? Bones:? Patient is status post prior internal fixation of proximal tibia.? Subacute appearing fracture involving lateral aspect of tibia extending to lateral tibial plateau is seen with fairly well corticated margin.? There is 2-3 mm depression at lateral tibial plateau fracture site.? No other fracture or dislocation is seen.? No gross hardware loosening.? There is suggestion of a fractured surgical screw in proximal tibia near tibial plateau fracture site.? No suspicious intraosseous lesion. ? Soft tissues:? There is significant soft tissue swelling and edema along anterior aspect of patella and patella tendon.? Small joint effusion is seen, no intra-articular loose bodies.? No abnormal soft tissue calcifications.? Distal quadriceps tendon and patellar tendon are grossly intact.? Anterior and posterior cruciate ligaments are intact. ? ? IMPRESSION:? 1. No acute right knee fracture or dislocation. 2. Subacute appearing lateral tibial plateau fracture with prior internal fixation.? 2-3 mm depression at lateral tibial plateau fracture site. 3. Suggestion of fractured fixation screw in proximal tibial shaft near tibial plateau.? No other hardware loosening or failure is seen. 4. Soft tissue swelling and edema along anterior aspect of patella and patella tendon.? Small joint effusion.? No full-thickness tendon rupture.? Anterior and posterior cruciate ligaments are grossly intact.? ? Dictated by: Brent Hearn M.D. on 12/03/2021 at 14:46 ? ? Approved by: Brent Hearn M.D. on 12/03/2021 at 14:50 ? MDM Narrative Medical decision making narrative: This is a 36-year-old female presents to the emergency department two days after she tripped going down stairs and fell forward onto her right knee and now complains of right knee swelling and pain. Patient is status post ORIF procedure for a lateral tibial plateau fracture in March 2021, no prior images were available to compare x-ray today to. On x-ray today it appears that she has a cortical step-off in lateral tibial plateau, it is difficult to evaluate whether this is acute or from prior as the intra-articular surface of the joint appears irregular without remodeling, consultation to Dr. Alonzo was attempted to see if he would prefer to see a CT image of this patient prior to her following up in the clinic. He was in surgery today, opted to obtain a CT without contrast of the right knee to evaluate for acute/prior fracture, and if all hardware is intact without disruption. Noncontrast right lower extremity CT scan shows No acute right knee fracture or dislocation. Subacute appearing lateral tibial plateau fracture with prior internal fixation.? 2-3 mm depression at lateral tibial plateau fracture site. Suggestion of fractured fixation screw in proximal tibial shaft near tibial plateau.?No other hardware loosening or failure is seen. Soft tissue swelling and edema along anterior aspect of patella and patella tendon.? Small joint effusion.? No full-thickness tendon rupture.? Anterior and posterior cruciate ligaments are grossly intact.? Patient was fitted in a knee immobilizer, given crutches for ambulation, wants to follow-up with [place] [facility] who completed her surgery. The contact information is listed below, patient was given strict return precautions, understands to follow-up with her surgeon for likely fixation screw fracture/hardware failure. Patient is encouraged to use ice, immobilization, elevation, Tylenol, ibuprofen, and tramadol as needed for her knee pain. Patient is appropriate and amenable to discharge home. Vital signs are stable on repeat examination is unremarkable. Patient has been informed of results. Patient has been given strict return to ER precautions for any new or worsening symptoms. Patient understands to follow up closely with outpatient providers as instructed. Patient understands plan and agrees to discharge home. All questions and concerns answered at this time. Discharge Plan Departure Patient Disposition: Home Clinical Impression: Effusion of knee joint right, Failed hardware Right knee injury Qualifiers: Encounter type: initial encounter Qualified Code(s): S89.91XA - Unspecified injury of right lower leg, initial encounter Instructions: DI for Knee Effusion, DI for Knee Pain Activity Restrictions/Additional Instructions: *You have been diagnosed with a fractured screw in your right knee from your prior right knee surgery. Please use ice, Tylenol, ibuprofen, your knee immobilizer, and an assistive walking device until you follow-up with Dr. Hebert and his associates at [facility] in [place]. I have given you a copy of your CT report, please have [facility] request images so that the CT is sent over to them. Please make an appointment for follow-up as soon as you are able, wear the knee immobilizer while you're out about, use topical Voltaren gel or lidocaine patches as needed for your pain in addition to Tylenol, ibuprofen, or tramadol. I hope you feel better soon, thank you for your patience and trusting us with your care. *What to do: *Please continue to take your regular medications as directed. [ x] New medication prescriptions sent to your pharmacy: [[facility] ] [ ] New medication written as a paper prescription [ ] No new medications given *Please follow up with your primary care provider in 2-3 days, call for an appointment. Let them know you were seen in the Emergency Department and that we asked that you be seen for follow-up. We will electronically transmit a record of today's note if your PCP is in our system *If you do not have a primary care provider please contact [phone] to establish care with one of the [facility] primary care providers. *Return to Emergency Department if you should have any new, worsening or concerning symptoms, such as [fever greater than 101F, chills, worsening pain, persistent vomiting or other bothersome symptoms] Prescriptions: New tramadol 50 mg tablet 50 mg PO DAILY PRN (Reason: pain) Qty: 14 0RF lidocaine [Lidoderm] 5 % adhesive patch,medicated 1 patch topical DAILY PRN (Reason: pain) Qty: 15 0RF Rx Instructions: leave on most painful area for up to 12 hrs diclofenac sodium 1 % gel 4 g topical QID PRN (Reason: knee p) Qty: 100 0RF Rx Instructions: apply to single knee, ankle, foot; for foot includes sole/toes/top of foot methocarbamol 500 mg tablet 500 mg PO BEDTIME PRN (Reason: muscle spasms) Qty: 14 0RF No Action [BCP] Qty: 0 ibuprofen 600 mg tablet 600 mg PO Q6-8H PRN (Reason: pain) Qty: 60 0RF ondansetron 4 mg tablet,disintegrating 4 mg PO Q4H PRN (Reason: nausea and vomiting) Qty: 20 0RF Referrals: Michael Hebert MD [Non-Staff] - 5-7 days Natasha Mckinley MD [Primary Care Provider] - Visit Report Forms: Patient Portal/API <Deisy Isaac DO - Last Filed: 12/06/21 18:03> [facility] Michelleature Attestation: I was immediately available in the department for consultation. Documentation has been reviewed.
[2021-12-03] MEDS: methocarbamoL 500 MG TABLET PO (13:35)
[2021-12-03] MEDS: ACETAMINOPHEN 325 MG TABLET 975 MG PO (13:36)
[2021-12-03] MEDS: KETOROLAC 30 MG/ML VIAL 15 MG IM (13:36)
--- NOTE | 2021-12-03 13:46 | PC.NURSE ---
Pt declined POC preg test after education given on risk with Toradol. Pt statesthat she is using both condoms and oral control. Crew updated. Ok to give meds.
--- NOTE | 2021-12-03 14:15 | DI.CT.S_ITS ---
PROCEDURE: CT LE RT WO CON INDICATIONS: trauma to rt knee following rt lateral tibial fx w/hardware TECHNIQUE: Noncontrast 1-1.5 mm axial sections acquired from the mid-patella to the proximal tibia, with coronal and sagittal reformats. COMPARISON: [facility], CR, XR KNEE RT 3V, 12/03/2021, 13:07. FINDINGS: Image quality: Diagnostic. Significant beam hardening artifacts from tibial surgical hardware are seen. Bones: Patient is status post prior internal fixation of proximal tibia. Subacute appearing fracture involving lateral aspect of tibia extending to lateral tibial plateau is seen with fairly well corticated margin. There is 2-3 mm depression at lateral tibial plateau fracture site. No other fracture or dislocation is seen. No gross hardware loosening. There is suggestion of a fractured surgical screw in proximal tibia near tibial plateau fracture site. No suspicious intraosseous lesion. Soft tissues: There is significant soft tissue swelling and edema along anterior aspect of patella and patella tendon. Small joint effusion is seen, no intra-articular loose bodies. No abnormal soft tissue calcifications. Distal quadriceps tendon and patellar tendon are grossly intact. Anterior and posterior cruciate ligaments are intact. IMPRESSION: 1. No acute right knee fracture or dislocation. 2. Subacute appearing lateral tibial plateau fracture with prior internal fixation. 2-3 mm depression at lateral tibial plateau fracture site. 3. Suggestion of fractured fixation screw in proximal tibial shaft near tibial plateau. No other hardware loosening or failure is seen. 4. Soft tissue swelling and edema along anterior aspect of patella and patella tendon. Small joint effusion. No full-thickness tendon rupture. Anterior and posterior cruciate ligaments are grossly intact. Dictated by: Brent Hearn M.D. on 12/03/2021 at 14:46 Approved by: Brent Hearn M.D. on 12/03/2021 at 14:50
[2021-12-03 15:26] VITALS: BP 130/81; PULSE 71; RESP 16; O2SAT 97
== END 2021-12-03 15:28 | disposition home or self-care (01) ==
PROVIDERS: Emergency Provider Nurse Practitioner Critical Care Medicine; PCP Family Medicine
DX: S89.91XA Unspecified injury of right lower leg, initial encounter (principal); M25.461 Effusion, right knee; Z87.81 Personal history of (healed) traumatic fracture; W10.9XXA Fall (on) (from) unspecified stairs and steps, initial encounter
CPT/HCPCS: 73562; 73700; 96372; 99283; 99284; J1885

== ENCOUNTER 2022-01-06 17:39 | Emergency (ER) | payer OTHER, MEDICAID, SELFPAY ==
[2022-01-06] VITALS (8 sets, daily range): BP systolic 111–139; BP diastolic 56–68; PULSE 53–84; RESP 24; TEMP 36.4; O2SAT 96–99; BMI 41.1
--- NOTE | 2022-01-06 17:53 | DI.RAD.S_ITS ---
PROCEDURE: XR CHEST 1V INDICATIONS: chest pain TECHNIQUE: One view of the chest was acquired. COMPARISON: [facility], CT, CT CHEST ABD PEL W CON, 03/26/2021, 10:22. FINDINGS: Clothing ornamentation (sparkles on the shirt) artifact can be seen on the left side. Surgical changes and devices: None. Lungs and pleura: Lungs are clear. No pleural effusions or pneumothorax. Mediastinum: Mediastinal contours appear normal. Heart size is normal. Bones and chest wall: No suspicious bony lesions. Overlying soft tissues appear unremarkable. IMPRESSION: Clear lungs. Dictated by: Dano Rucker M.D. on 01/06/2022 at 17:17 Approved by: Dano Rucker M.D. on 01/06/2022 at 17:18
--- NOTE | 2022-01-06 18:24 | DI.CT.S_ITS ---
PROCEDURE: CT ABDOMEN PELVIS W CON INDICATIONS: RUQ pain, smoker, hx GI ulcer, acute onset RUQ pain 2 hrs ag TECHNIQUE: After the administration of intravenous contrast, axial sections acquired from the lung bases to the pubic symphysis. Coronal and sagittal reformats were performed. For radiation dose reduction, the following was used: automated exposure control, adjustment of mA and/or kV according to patient size. COMPARISON: None. FINDINGS: Lower thorax: The lung bases are clear. Heart size normal. No hiatal hernia. Liver: Normal in size and attenuation. No contour deformity present. Biliary system: Gallbladder is distended, there is calcified cholelithiasis layering dependently. No pericholecystic inflammatory change. Pancreas: Unremarkable without mass or inflammation evident. Spleen: Normal in size and density. Adrenals: Normal morphology and density. Reproductive system: Unremarkable as visualized. Urinary system: Normal renal size and attenuation. No renal calculi, hydronephrosis, or solid mass present. Urinary bladder unremarkable. Gastrointestinal system: The bowel is unremarkable without evidence of bowel obstruction or inflammation. The stomach appears unremarkable. Appendix: No findings to suggest acute appendicitis. Peritoneal spaces: No mesenteric or retroperitoneal adenopathy. No free air. No free fluid. Vasculature: The IVC, aorta and iliac vasculature are unremarkable. Abdominal wall: Abdominal wall intact without evidence of ventral or inguinal hernias. Musculoskeletal: Normal bone mineralization. No acute fractures. IMPRESSION: 1. Gallbladder distention with cholelithiasis, but no CT evidence of acute cholecystitis. Consider ultrasound correlation. Approved by: Tad Tijerina M.D. on 01/06/2022 at 18:23
--- NOTE | 2022-01-06 18:25 | ED_ITS ---
HPI - Chest Pain <Nadya Warren [facility] - Last Filed: 01/06/22 20:40> General Chief Complaint: Chest Pain Stated Complaint: sob/abd. pain Time Seen by Provider: 01/06/22 18:14 Source: patient Mode of arrival: Wheelchair History of Present Illness HPI narrative: This is a 36-year-old female with history of multiple sclerosis, stomach ulcers, everyday smoker, history of optic neuritis with subsequent blindness, who presents emergency department by private vehicle complaining of acute onset of right upper quadrant pain 2 hours ago associated with nausea, vomiting, radiation to her right back and tenderness to her whole abdomen. Patient endorses dysuria, with right-sided flank pain as well. She denies any po ssibility of , denies any recent fever, illness, states that she had pizza approximately 2 hours ago when her pain started right afterwards. She denies taking any ibuprofen recently, states that she has not taken any for a while. Patient states that her pain came on sudden and severe, she is had diaphoresis since this started, denies any history of abdominal surgeries. When asked if she has any shoulder pain associated with this pain, she says yes both of them hurt, she also endorses lower abdominal pain but states that is generalized. She denies any changes to her bowels and states that she has been regular. She was last seen in the emergency department by myself for right knee effusion after she tripped and fell onto her right knee and fractured a screw in her prior tibial plateau fracture. Her CT showed a subacute appearing lateral tibial plateau fracture with prior internal fixation with a 2-3 mm depression of the lateral tibial plateau fracture site. Suggestion of a fractured fixation screw proximal tibial shaft near the tibial plateau. Patient states that she h as not followed up with Orthopedics yet and has been meaning to do so. She states that this is better but now has this abdominal pain concern. She states that she took some Rolaids, this did not really help her pain either. Related Data Home Medications Medication Instructions Recorded Confirmed [BCP] ##0 07/28/08 Previous Rx's Medication Instructions Recorded ibuprofen 600 mg tablet 600 mg PO Q6-8H PRN pain #60 tabs 04/24/20 ondansetron 4 mg disintegrating 4 mg PO Q4H PRN nausea and 04/24/20 tablet vomiting #20 tabs diclofenac sodium 1 % topical gel 4 g topical QID PRN knee p #100 12/03/21 grams lidocaine 5 % topical patch 1 patch topical DAILY PRN pain #15 12/03/21 (Lidoderm) ea methocarbamol 500 mg tablet 500 mg PO BEDTIME PRN muscle 12/03/21 spasms #14 tabs tramadol 50 mg tablet 50 mg PO DAILY PRN pain #14 tabs 12/03/21 omeprazole magnesium 20 mg 20 mg PO DAILY #20 caps 01/06/22 capsule,delayed release (Acid Lining Folder (omeprazole)) ondansetron 4 mg disintegrating 4 mg PO Q8H PRN nausea and 01/06/22 tablet vomiting #10 tabs tramadol 50 mg tablet 50 mg PO BID PRN pain #14 tabs 01/06/22 Allergies Allergy/AdvReac Type Severity Reaction Status Date / Time No Known Drug Allergies Allergy Verified 12/03/21 13:08 Review of Systems <MEETA Smith - Last Filed: 01/06/22 20:40> Review of Systems Narrative: General: denies fever, chills Head/Neck: denies headache, neck pain, denies any numbness or tingling Eyes: denies visual changes, eye pain Cardio: denies chest pain, palpitations Respiratory: denies shortness of breath, cough GI: Endorses right upper abdominal pain that radiates to the right flank area accompanied by nausea, vomiting, without diarrhea or constipation, denies any black or tarry stools, denies any blood in her stool : Endorses dysuria without hematuria or urinary retention. Endorses right- sided flank pain MSK: denies new joint pain, muscle weakness or swelling Skin: denies rash, itching or wound Neuro: denies numbness, tingling, dizziness Patient History <MEETA Smith - Last Filed: 01/06/22 20:40> Medical History Head injury Multiple sclerosis Optic neuritis Surgical History No significant past surgical history Social History Smoking Status: Current every day smoker Smoking Status: Current every day smoker tobacco type: cigarettes alcohol intake frequency: 0-2 drinks per day Alcohol type: beer Substance Use Type: former substance user, marijuana and methamphetamine Exam <MEETA Smith - Last Filed: 01/06/22 20:40> Narrative Exam Narrative: Independently reviewed vitals signs and nursing notes. General: Awake, alert, nontoxic appearing but appears to be in pain and distressed over this, no cardiorespiratory distress Head/Neck: Atraumatic, neck supple Eyes: EOMI, conjunctiva normal Nose: nares patent, no rhinorrhea Mouth/Throat: moist mucus membranes, posterior pharynx without erythema or lesion Cardio: Regular rate and rhythm, no peripheral edema Respiratory: respirations unlabored without wheezing, stridor, or rales. No retractions, hypoxia or tachypnea GI: Abdomen soft, tenderness to palpation in right upper quadrant, mild tenderness to the rest of abdomen but her abdomen is soft although obese, no guarding or rebound tenderness MSK: Moves all extremities, neurovascularly intact, range of motion without deficit Skin: Normal capillary refill, no rash Neuro: Normal speech and cognition, normal gait Initial Vital Signs Initial Vital Signs: Vital Signs Temperature 97.6 F 01/06/22 17:44 Pulse Rate 84 01/06/22 17:44 Respiratory Rate 24 01/06/22 17:44 Blood Pressure 139/68 01/06/22 17:44 Pulse Oximetry 99 01/06/22 17:44 Oxygen Delivery Method 01/06/22 17:44 <Rogerio Hatch DO - Last Filed: 01/06/22 23:13> Initial Vital Signs Initial Vital Signs: Vital Signs Temperature 97.6 F 01/06/22 17:44 Pulse Rate 84 01/06/22 17:44 Respiratory Rate 24 01/06/22 17:44 Blood Pressure 139/68 01/06/22 17:44 Pulse Oximetry 99 01/06/22 17:44 Oxygen Delivery Method 01/06/22 17:44 Course <MEETA Smith - Last Filed: 01/06/22 20:40> Orders Ordered: ED Orders 01/06/22 17:53 XR chest 1V Stat EKG-12 Lead Stat 01/06/22 18:00 Complete Blood Count AUTO DIFF Stat Comprehensive Metabolic Panel Stat Lactate (Lactic Acid) Stat Lipase Stat Magnesium Stat Procalcitonin Stat Troponin & CK Cardiac Panel Stat 01/06/22 18:24 CT abdomen pelvis w con Stat 01/06/22 19:09 COVID19 -Nasal RAPID/Pre-Proc Stat 01/06/22 19:50 UA dip and micro [Urinalysis and Microscopic] Stat Urine Culture Stat Discontinued Medications Alprazolam (Alprazolam 0.5 Mg Tablet) 0.5 mg PO NOW ONE Stop: 01/06/22 18:17 Last Admin: 01/06/22 19:06 Dose: Not Given Documented By: NR Hydromorphone HCl (Hydromorphone 0.5 Mg Inj) 0.5 mg IV NOW ONE Stop: 01/06/22 18:24 Last Admin: 01/06/22 18:52 Dose: 0.5 mg Documented By: NR Sodium Chloride (Normal Saline 0.9%) 1,000 mls @ 1,000 mls/hr IV BOLUS ONE Stop: 01/06/22 19:22 Last Infusion: 01/06/22 20:48 Dose: 0 mls/hr Documented By: Admin: 01/06/22 18:51 Dose: 1,000 mls/hr Documented By: NR Ketorolac Tromethamine (Ketorolac 30 Mg/Ml Vial) 15 mg IV NOW ONE Stop: 01/06/22 18:24 Last Admin: 01/06/22 18:53 Dose: 15 mg Documented By: NR Ondansetron HCl (Ondansetron 4 Mg/2 Ml Inj) 4 mg IV NOW ONE Stop: 01/06/22 18:24 Last Admin: 01/06/22 18:53 Dose: 4 mg Documented By: NR Pantoprazole Sodium (Pantoprazole 40 Mg Vial) 40 mg IV NOW ONE Stop: 01/06/22 18:32 Last Admin: 01/06/22 18:53 Dose: 40 mg Documented By: NR Vital Signs Vital signs: Vital Signs - 8 hr 01/06/22 17:44 01/06/22 18:19 01/06/22 18:30 Temperature 97.6 F Pulse Rate 84 Respiratory Rate 24 Blood Pressure 139/68 123/64 Pulse Oximetry 99 96 Oxygen Delivery Method Room Air 01/06/22 18:30 01/06/22 19:00 01/06/22 19:30 Temperature Pulse Rate 67 56 L 56 L Respiratory Rate Blood Pressure Pulse Oximetry 99 99 96 Oxygen Delivery Method 01/06/22 19:55 01/06/22 19:55 01/06/22 20:00 Temperature Pulse Rate 57 L Respiratory Rate Blood Pressure 122/66 111/58 L Pulse Oximetry 97 Oxygen Delivery Method 01/06/22 20:00 01/06/22 20:30 01/06/22 20:30 Temperature Pulse Rate 56 L 53 L Respiratory Rate Blood Pressure 112/56 L Pulse Oximetry 97 98 Oxygen Delivery Method <Rogerio Hatch DO - Last Filed: 01/06/22 23:13> Orders Ordered: ED Orders 01/06/22 17:53 XR chest 1V Stat EKG-12 Lead Stat 01/06/22 18:00 Complete Blood Count AUTO DIFF Stat Comprehensive Metabolic Panel Stat Lactate (Lactic Acid) Stat Lipase Stat Magnesium Stat Procalcitonin Stat Troponin & CK Cardiac Panel Stat 01/06/22 18:24 CT abdomen pelvis w con Stat 01/06/22 19:09 COVID19 -Nasal RAPID/Pre-Proc Stat 01/06/22 19:50 UA dip and micro [Urinalysis and Microscopic] Stat Urine Culture Stat Discontinued Medications Alprazolam (Alprazolam 0.5 Mg Tablet) 0.5 mg PO NOW ONE Stop: 01/06/22 18:17 Last Admin: 01/06/22 19:06 Dose: Not Given Documented By: NR Hydromorphone HCl (Hydromorphone 0.5 Mg Inj) 0.5 mg IV NOW ONE Stop: 01/06/22 18:24 Last Admin: 01/06/22 18:52 Dose: 0.5 mg Documented By: NR Sodium Chloride (Normal Saline 0.9%) 1,000 mls @ 1,000 mls/hr IV BOLUS ONE Stop: 01/06/22 19:22 Last Infusion: 01/06/22 20:48 Dose: 0 mls/hr Documented By: Admin: 01/06/22 18:51 Dose: 1,000 mls/hr Documented By: NR Ketorolac Tromethamine (Ketorolac 30 Mg/Ml Vial) 15 mg IV NOW ONE Stop: 01/06/22 18:24 Last Admin: 01/06/22 18:53 Dose: 15 mg Documented By: NR Ondansetron HCl (Ondansetron 4 Mg/2 Ml Inj) 4 mg IV NOW ONE Stop: 01/06/22 18:24 Last Admin: 01/06/22 18:53 Dose: 4 mg Documented By: NR Pantoprazole Sodium (Pantoprazole 40 Mg Vial) 40 mg IV NOW ONE Stop: 01/06/22 18:32 Last Admin: 01/06/22 18:53 Dose: 40 mg Documented By: NR Vital Signs Vital signs: Vital Signs - 8 hr 01/06/22 17:44 01/06/22 18:19 01/06/22 18:30 Temperature 97.6 F Pulse Rate 84 Respiratory Rate 24 Blood Pressure 139/68 123/64 Pulse Oximetry 99 96 Oxygen Delivery Method Room Air 01/06/22 18:30 01/06/22 19:00 01/06/22 19:30 Temperature Pulse Rate 67 56 L 56 L Respiratory Rate Blood Pressure Pulse Oximetry 99 99 96 Oxygen Delivery Method 01/06/22 19:55 01/06/22 19:55 01/06/22 20:00 Temperature Pulse Rate 57 L Respiratory Rate Blood Pressure 122/66 111/58 L Pulse Oximetry 97 Oxygen Delivery Method 01/06/22 20:00 01/06/22 20:30 01/06/22 20:30 Temperature Pulse Rate 56 L 53 L Respiratory Rate Blood Pressure 112/56 L Pulse Oximetry 97 98 Oxygen Delivery Method MDM - Chest Pain <MEETA Smith - Last Filed: 01/06/22 20:40> Lab Data Result diagrams: 01/06/22 18:00 01/06/22 18:00 Labs: Lab Results 01/06/22 01/06/22 01/06/22 Range/Units 18:00 18:00 18:00 WBC 9.5 (4.5-11.0) X10^3/uL RBC 4.66 (4.0-5.2) X10^6/uL Hgb 14.5 (12.0-16.0) g/dL Hct 42.0 (36-46) % MCV 90.1 (80-100) fL MCH 31.1 (26-34) PG MCHC 34.5 (30-36) % RDW 12.5 (11.6-14.8) % Plt Count 336 (150-400) X10^3/uL Neut % (Auto) 65.6 (50-75) % Lymph % (Auto) 24.4 L (25-40) % [place] % (Auto) 6.0 (3-14) % Eos % (Auto) 3.1 (2-4) % Baso % (Auto) 0.9 (0-2) % Neut # (Auto) 6300 (5142-7112) /uL Lymph # (Auto) 2300 (3621-5868) /uL [place] # (Auto) 600 (0-900) /uL Eos # (Auto) 300 (0-450) /uL Baso # (Auto) 100 (0-100) /uL Sodium 141 (137-145) mmol/L Potassium 3.9 (3.4-5.1) mmol/L Chloride 111 H (98-107) mmol/L Carbon Dioxide 19 L (22-32) mmol/L BUN 11 (7-17) mg/dL Creatinine 0.78 (0.52-1.04) mg/dL Estimated GFR > 60 (>60) mL/min BUN/Creatinine Ratio 14.1 (6-22) Glucose 132 H (70-100) mg/dL Lactate 1.6 (0.7-2.1) mmol/L Calcium 9.2 (8.4-10.2) mg/dL Magnesium 2.2 (1.6-2.3) mg/dL Total Bilirubin 0.6 (0.2-1.3) mg/dL AST 32 (14-36) IU/L ALT 33 (<35) IU/L Alkaline Phosphatase 61 (38-126) U/L Total Creatine Kinase 61 (30-135) U/L CK-MB (CK-2) TNP CK-MB (CK-2) Rel Index TNP Troponin I < 0.012 (0.01-0.034) ng/mL Total Protein 7.0 (6.3-8.2) g/dL Albumin 4.2 (3.5-5.0) g/dL Globulin 2.8 (1.7-4.1) g/dL Albumin/Globulin Ratio 1.5 (1.0-2.8) Lipase 112 (23-300) U/L Procalcitonin (<0.5) ng/mL Urine Color Urine Appearance Urine pH (4.5-8.0) Ur Specific [place] (1.000-1.035) Urine Protein (Negative) Urine Glucose (UA) (Negative) g/dL Urine Ketones (NEGATIVE) Urine Occult Blood (Negative) Urine Nitrate (Negative) Urine Bilirubin (NEGATIVE) Urine Urobilinogen (0.2) E.U./dL Ur Leukocyte Esterase (NEGATIVE) Urine RBC (0-5/HPF) Urine WBC (0-5/HPF) Ur Squamous Epith Cells (0-5/HPF) Other Crystals Urine Bacteria (None) Ur Culture Indicated? SARS-CoV-2 (PCR) (Negative) 01/06/22 01/06/22 01/06/22 Range/Units 18:00 19:09 19:50 WBC (4.5-11.0) X10^3/uL RBC (4.0-5.2) X10^6/uL Hgb (12.0-16.0) g/dL Hct (36-46) % MCV (80-100) fL MCH (26-34) PG MCHC (30-36) % RDW (11.6-14.8) % Plt Count (150-400) X10^3/uL Neut % (Auto) (50-75) % Lymph % (Auto) (25-40) % [place] % (Auto) (3-14) % Eos % (Auto) (2-4) % Baso % (Auto) (0-2) % Neut # (Auto) (6967-5069) /uL Lymph # (Auto) (2710-8077) /uL [place] # (Auto) (0-900) /uL Eos # (Auto) (0-450) /uL Baso # (Auto) (0-100) /uL Sodium (137-145) mmol/L Potassium (3.4-5.1) mmol/L Chloride (98-107) mmol/L Carbon Dioxide (22-32) mmol/L BUN (7-17) mg/dL Creatinine (0.52-1.04) mg/dL Estimated GFR (>60) mL/min BUN/Creatinine Ratio (6-22) Glucose (70-100) mg/dL Lactate (0.7-2.1) mmol/L Calcium (8.4-10.2) mg/dL Magnesium (1.6-2.3) mg/dL Total Bilirubin (0.2-1.3) mg/dL AST (14-36) IU/L ALT (<35) IU/L Alkaline Phosphatase (38-126) U/L Total Creatine Kinase (30-135) U/L CK-MB (CK-2) CK-MB (CK-2) Rel Index Troponin I (0.01-0.034) ng/mL Total Protein (6.3-8.2) g/dL Albumin (3.5-5.0) g/dL Globulin (1.7-4.1) g/dL Albumin/Globulin Ratio (1.0-2.8) Lipase (23-300) U/L Procalcitonin 0.03 (<0.5) ng/mL Urine Color Yellow Urine Appearance Sl cloudy Urine pH 8.0 (4.5-8.0) Ur Specific [place] 1.010 (1.000-1.035) Urine Protein Negative (Negative) Urine Glucose (UA) Negative (Negative) g/dL Urine Ketones Trace H (NEGATIVE) Urine Occult Blood Negative (Negative) Urine Nitrate Negative (Negative) Urine Bilirubin Negative (NEGATIVE) Urine Urobilinogen 0.2 (0.2) E.U./dL Ur Leukocyte Esterase Negative (NEGATIVE) Urine RBC 0-1/hpf (0-5/HPF) Urine WBC 0-1/hpf (0-5/HPF) Ur Squamous Epith Cells 1-5 /hpf (0-5/HPF) Other Crystals 2+ amorphous Urine Bacteria Few (2-10) H (None) Ur Culture Indicated? Cult not indicated SARS-CoV-2 (PCR) Negative (Negative) Point of Care Testing Test Results Negative Urine Dip Bedside Urine Glucose Negative Bedside Urine Bilirubin - Negative Bedside Urine Ketone - Negative Urine Specific [place] 1.010 Bedside Urine Occult Blood - Negative Bedside Urine pH 7.5 Bedside Urine Protein +/- 15 Bedside Urine Urobilinogen - Negative Bedside Urine Nitrite - Negative Bedside Urine Leukocytes - Negative Esterase Imaging Data CT scan - abdomen/pelvis: Radiologist's Impression: PROCEDURE:? CT ABDOMEN PELVIS W CON ? INDICATIONS:? RUQ pain, smoker, hx GI ulcer, acute onset RUQ pain 2 hrs ag ? TECHNIQUE:? After the administration of intravenous contrast, axial sections acquired from the lung bases to the pubic symphysis.? Coronal and sagittal reformats were performed.? For radiation dose reduction, the following was used:? automated exposure control, adjustment of mA and/or kV according to patient size.? ? COMPARISON:? None. ? FINDINGS: ? Lower thorax: The lung bases are clear.? Heart size normal.? No hiatal hernia. ? Liver:? Normal in size and attenuation. No contour deformity present. ? Biliary system:? Gallbladder is distended, there is calcified cholelithiasis layering dependently.? No pericholecystic inflammatory change. ? Pancreas:? Unremarkable without mass or inflammation evident. ? Spleen:? Normal in size and density. ? Adrenals:? Normal morphology and density. ? Reproductive system:? Unremarkable as visualized. ? Urinary system:? Normal renal size and attenuation. No renal calculi, hydronephrosis, or solid mass present.? Urinary bladder unremarkable. ? Gastrointestinal system:? The bowel is unremarkable without evidence of bowel obstruction or inflammation. The stomach appears unremarkable. ? Appendix:? No findings to suggest acute appendicitis. ? Peritoneal spaces:? No mesenteric or retroperitoneal adenopathy.? No free air.? No free fluid.? ? Vasculature:? The IVC, aorta and iliac vasculature are unremarkable. ? Abdominal wall:? Abdominal wall intact without evidence of ventral or inguinal hernias. ? Musculoskeletal:? Normal bone mineralization.? No acute fractures.? ? IMPRESSION: ? 1. Gallbladder distention with cholelithiasis, but no CT evidence of acute cholecystitis. ?Consider ultrasound correlation. ? Approved by: Tad Tijerina M.D. on 01/06/2022 at 18:23? Chest x-ray: Radiologist's Impression: PROCEDURE:? XR CHEST 1V ? INDICATIONS:? chest pain ? TECHNIQUE:? One view of the chest was acquired.? ? COMPARISON:? [facility], CT, CT CHEST ABD PEL W CON, 03/26/2021, 10:22. ? FINDINGS:? Clothing ornamentation (sparkles on the shirt) artifact can be seen on the left side. ? Surgical changes and devices:? None.? ? Lungs and pleura:? Lungs are clear.? No pleural effusions or pneumothorax.? ? Mediastinum:? Mediastinal contours appear normal.? Heart size is normal.? ? Bones and chest wall:? No suspicious bony lesions.? Overlying soft tissues appear unremarkable.? ? ? IMPRESSION:? ? Clear lungs. ? ? Dictated by: Dano Rucker M.D. on 01/06/2022 at 17:17 ? ? Approved by: Dano Rucker M.D. on 01/06/2022 at 17:18 ? ECG Data Interpretation: EKG independently reviewed by Dr Baez and reveals normal sinus rhythm at 63 bpm with regular axis and intervals. No STEMI, ST segment changes, arrhythmia, or acute ischemic changes. MDM Narrative Medical decision making narrative: This is a 36-year-old female with history GI ulcer, current smoker, multiple sclerosis who presents to the emergency department with acute onset of right upper quadrant abdominal pain 2 hours prior to arrival with associated nausea and vomiting. She also endorses dysuria with right-sided flank pain, states that she is had diaphoresis associated with this pain. States that she is allergic to Percocet because it makes her vomit. Patient was writhing in pain on exam, has significant tenderness to the right upper quadrant with palpation, no significant tenderness elsewhere, states that her pain radiates to the right flank area. She denies any tarry black stool or blood in her stool. UA shows protein. No leukocyte esterase. Urine microscopy shows a trace of bacteria, urine culture was ordered, we will follow-up on urine culture results. Lab work does not show any leukocytosis, anemia, no elevation in liver enzymes or T bilirubin. Lactate is 1.6, no electrolyte abnormalities, creatinine is 0.78, troponin is negative, procalcitonin is 0.03, lipase is 112. CT abdomen pelvis is not available to view, called the [facility] Radiology reading room, nobody has an image over there, discuss with technician semiconductor development, what happened to the images will be sent to [facility] Radiology. CT abdomen pelvis radiology report is now viewable and shows gallbladder distention with cholelithiasis but no CT evidence of acute cholecystitis, biliary obstruction. COVID PCR is negative. Since her lab work overall is grossly unremarkable and her pain is improved with medications, encouraged her to follow a low-fat diet, stay hydrated, and follow up with her primary care provider for outpatient imaging/ultrasound/general surgeon follow-up as needed. She was given contact information for [facility]. She was prescribed Zofran, tramadol for pain, and omeprazole for history of GI ulcer. No peritoneal signs on abdominal exam. Patient remains p.o. tolerant. Serial abdominal exam without increase in abdominal pain. Given history and exam, low suspicion for acute abdominal process, such as acute cholecystitis, pancreatit is, perforated viscus, atypical appendicitis, colitis, diverticulitis or torsion. Extensive conversation about ER return precautions and need for close follow-up. She was given strict return precautions. Patient is appropriate and amenable to discharge home. Vital signs are stable on repeat examination is unremarkable. Patient has been informed of results. Patient has been given strict return to ER precautions for any new or worsening symptoms. Patient understands to follow up closely with outpatient providers as instructed. Patient understands plan and agrees to discharge home. All questions and concerns answered at this time. <Rogerio Hatch, DO - Last Filed: 01/06/22 23:13> Lab Data Labs: Lab Results 01/06/22 01/06/22 01/06/22 Range/Units 18:00 18:00 18:00 WBC 9.5 (4.5-11.0) X10^3/uL RBC 4.66 (4.0-5.2) X10^6/uL Hgb 14.5 (12.0-16.0) g/dL Hct 42.0 (36-46) % MCV 90.1 (80-100) fL MCH 31.1 (26-34) PG MCHC 34.5 (30-36) % RDW 12.5 (11.6-14.8) % Plt Count 336 (150-400) X10^3/uL Neut % (Auto) 65.6 (50-75) % Lymph % (Auto) 24.4 L (25-40) % [place] % (Auto) 6.0 (3-14) % Eos % (Auto) 3.1 (2-4) % Baso % (Auto) 0.9 (0-2) % Neut # (Auto) 6300 (6856-4393) /uL Lymph # (Auto) 2300 (4223-0207) /uL [place] # (Auto) 600 (0-900) /uL Eos # (Auto) 300 (0-450) /uL Baso # (Auto) 100 (0-100) /uL Sodium 141 (137-145) mmol/L Potassium 3.9 (3.4-5.1) mmol/L Chloride 111 H (98-107) mmol/L Carbon Dioxide 19 L (22-32) mmol/L BUN 11 (7-17) mg/dL Creatinine 0.78 (0.52-1.04) mg/dL Estimated GFR > 60 (>60) mL/min BUN/Creatinine Ratio 14.1 (6-22) Glucose 132 H (70-100) mg/dL Lactate 1.6 (0.7-2.1) mmol/L Calcium 9.2 (8.4-10.2) mg/dL Magnesium 2.2 (1.6-2.3) mg/dL Total Bilirubin 0.6 (0.2-1.3) mg/dL AST 32 (14-36) IU/L ALT 33 (<35) IU/L Alkaline Phosphatase 61 (38-126) U/L Total Creatine Kinase 61 (30-135) U/L CK-MB (CK-2) TNP CK-MB (CK-2) Rel Index TNP Troponin I < 0.012 (0.01-0.034) ng/mL Total Protein 7.0 (6.3-8.2) g/dL Albumin 4.2 (3.5-5.0) g/dL Globulin 2.8 (1.7-4.1) g/dL Albumin/Globulin Ratio 1.5 (1.0-2.8) Lipase 112 (23-300) U/L Procalcitonin (<0.5) ng/mL Urine Color Urine Appearance Urine pH (4.5-8.0) Ur Specific [place] (1.000-1.035) Urine Protein (Negative) Urine Glucose (UA) (Negative) g/dL Urine Ketones (NEGATIVE) Urine Occult Blood (Negative) Urine Nitrate (Negative) Urine Bilirubin (NEGATIVE) Urine Urobilinogen (0.2) E.U./dL Ur Leukocyte Esterase (NEGATIVE) Urine RBC (0-5/HPF) Urine WBC (0-5/HPF) Ur Squamous Epith Cells (0-5/HPF) Other Crystals Urine Bacteria (None) Ur Culture Indicated? SARS-CoV-2 (PCR) (Negative) 01/06/22 01/06/22 01/06/22 Range/Units 18:00 19:09 19:50 WBC (4.5-11.0) X10^3/uL RBC (4.0-5.2) X10^6/uL Hgb (12.0-16.0) g/dL Hct (36-46) % MCV (80-100) fL MCH (26-34) PG MCHC (30-36) % RDW (11.6-14.8) % Plt Count (150-400) X10^3/uL Neut % (Auto) (50-75) % Lymph % (Auto) (25-40) % [place] % (Auto) (3-14) % Eos % (Auto) (2-4) % Baso % (Auto) (0-2) % Neut # (Auto) (4138-5857) /uL Lymph # (Auto) (0214-7882) /uL [place] # (Auto) (0-900) /uL Eos # (Auto) (0-450) /uL Baso # (Auto) (0-100) /uL Sodium (137-145) mmol/L Potassium (3.4-5.1) mmol/L Chloride (98-107) mmol/L Carbon Dioxide (22-32) mmol/L BUN (7-17) mg/dL Creatinine (0.52-1.04) mg/dL Estimated GFR (>60) mL/min BUN/Creatinine Ratio (6-22) Glucose (70-100) mg/dL Lactate (0.7-2.1) mmol/L Calcium (8.4-10.2) mg/dL Magnesium (1.6-2.3) mg/dL Total Bilirubin (0.2-1.3) mg/dL AST (14-36) IU/L ALT (<35) IU/L Alkaline Phosphatase (38-126) U/L Total Creatine Kinase (30-135) U/L CK-MB (CK-2) CK-MB (CK-2) Rel Index Troponin I (0.01-0.034) ng/mL Total Protein (6.3-8.2) g/dL Albumin (3.5-5.0) g/dL Globulin (1.7-4.1) g/dL Albumin/Globulin Ratio (1.0-2.8) Lipase (23-300) U/L Procalcitonin 0.03 (<0.5) ng/mL Urine Color Yellow Urine Appearance Sl cloudy Urine pH 8.0 (4.5-8.0) Ur Specific [place] 1.010 (1.000-1.035) Urine Protein Negative (Negative) Urine Glucose (UA) Negative (Negative) g/dL Urine Ketones Trace H (NEGATIVE) Urine Occult Blood Negative (Negative) Urine Nitrate Negative (Negative) Urine Bilirubin Negative (NEGATIVE) Urine Urobilinogen 0.2 (0.2) E.U./dL Ur Leukocyte Esterase Negative (NEGATIVE) Urine RBC 0-1/hpf (0-5/HPF) Urine WBC 0-1/hpf (0-5/HPF) Ur Squamous Epith Cells 1-5 /hpf (0-5/HPF) Other Crystals 2+ amorphous Urine Bacteria Few (2-10) H (None) Ur Culture Indicated? Cult not indicated SARS-CoV-2 (PCR) Negative (Negative) Point of Care Testing Test Results Negative Urine Dip Bedside Urine Glucose Negative Bedside Urine Bilirubin - Negative Bedside Urine Ketone - Negative Urine Specific [place] 1.010 Bedside Urine Occult Blood - Negative Bedside Urine pH 7.5 Bedside Urine Protein +/- 15 Bedside Urine Urobilinogen - Negative Bedside Urine Nitrite - Negative Bedside Urine Leukocytes - Negative Esterase Discharge Plan Departure Patient Disposition: Home Clinical Impression: Right upper quadrant abdominal pain Cholelithiasis Qualifiers: Cholelithiasis location: gallbladder Cholecystitis presence: without cholecystitis Biliary obstruction: without biliary obstruction Qualified Code(s): K80.20 - Calculus of gallbladder without cholecystitis without obstruction Instructions: Eating a Diet Low in Saturated Fat, Trans Fat, and Cholesterol, DI for Gallstones Activity Restrictions/Additional Instructions: *You have been diagnosed with gallstones without evidence of a gallbladder infection or obstruction. This can cause quite a bit of pain after a fatty meal . Please try to eat foods low in fat and oils for the next few days and allow yourself time for this to improve. I have sent some medication to your pharmacy, please start taking omeprazole for GI ulcer prevention. Stay hydrated and drink plenty of water, please follow-up with your primary doctor about your gallstones and ask for an outpatient ultrasound to be scheduled at a later time. You may follow-up with our general surgeons if there are indications have your gallbladder removed. I will attach the [facility]/Dr. Eckert to your paperwork and you may call and make an appointment if you continue to have right upper abdominal pain at home. Please stay hydrated, your urine showed a trace of bacteria, we will see if this grows significant bacteria over the next few days and if you have any worsening symptoms painful urination, urinary urgency, or other, please call or return to the emergency department and ask if your urine culture grew any bacteria that needs an antibiotic. I hope you feel better soon, please stay hydrated, this may help prevent your urine from becoming infected. Come back to the emergency department if you do not have control over your pain. Thank you for your patience today. *What to do: *Please continue to take your regular medications as directed. [x ] New medication prescriptions sent to your pharmacy: [ [facility]] [ ] New medication written as a paper prescription [ ] No new medications given *Please follow up with your primary care provider in 2-3 days, call for an appointment. Let them know you were seen in the Emergency Department and that we asked that you be seen for follow-up. We will electronically transmit a record of today's note if your PCP is in our system *If you do not have a primary care provider please contact [phone] to establish care with one of the [facility] primary care providers. *Return to Emergency Department if you should have any new, worsening or concern ing symptoms, such as [fever greater than 101F, chills, worsening pain, persistent vomiting or other bothersome symptoms] Prescriptions: New tramadol 50 mg tablet 50 mg PO BID PRN (Reason: pain) Qty: 14 0RF omeprazole magnesium [Acid Lining Folder (omeprazole)] 20 mg capsule,delayed release(DR/EC) 20 mg PO DAILY Qty: 20 0RF ondansetron 4 mg tablet,disintegrating 4 mg PO Q8H PRN (Reason: nausea and vomiting) Qty: 10 0RF No Action [BCP] Qty: 0 ibuprofen 600 mg tablet 600 mg PO Q6-8H PRN (Reason: pain) Qty: 60 0RF ondansetron 4 mg tablet,disintegrating 4 mg PO Q4H PRN (Reason: nausea and vomiting) Qty: 20 0RF tramadol 50 mg tablet 50 mg PO DAILY PRN (Reason: pain) Qty: 14 0RF lidocaine [Lidoderm] 5 % adhesive patch,medicated 1 patch topical DAILY PRN (Reason: pain) Qty: 15 0RF Rx Instructions: leave on most painful area for up to 12 hrs diclofenac sodium 1 % gel 4 g topical QID PRN (Reason: knee p) Qty: 100 0RF Rx Instructions: apply to single knee, ankle, foot; for foot includes sole/toes/top of foot methocarbamol 500 mg tablet 500 mg PO BEDTIME PRN (Reason: muscle spasms) Qty: 14 0RF Referrals: Pari Eckert MD [Physician] - Natasha Mckinley MD [Primary Care Provider] - Visit Report Forms: Patient Portal/API <Rogerio Hatch, - Last Filed: 01/06/22 23:13> [facility] Dr Hatch Co-Sign Statement: I was available for consultation during this patient's emergency department visit. This chart is signed by myself for administrative purposes only. I did not have direct contact with this patient during this visit. They were seen independently by the APC.
[2022-01-06 18:31] LABS: Add Manual Diff / Slide Review NO; Basophils Absolute Auto 100 /uL (0-100); Basophils Percent Auto 0.9 % (0-2); Eosinophils Absolute Auto 300 /uL (0-450); Eosinophils Percent Auto 3.1 % (2-4); Hemoglobin 14.5 g/dL (12.0-16.0); Lymphocytes Absolute Auto 2300 /uL (1100-4500); Lymphocytes Percent Auto 24.4 % (25-40); Mean Corpuscular HGB Conc 34.5 % (30-36); Mean Corpuscular Hemoglobin 31.1 PG (26-34); Mean Corpuscular Volume 90.1 fL (80-100); Monocytes Absolute Auto 600 /uL (0-900); Neutrophils Absolute Auto 6300 /uL (1500-7000); Neutrophils Percent Auto 65.6 % (50-75); Platelet Count 336 X10^3/uL (150-400); Red Blood Cell Count 4.66 X10^6/uL (4.0-5.2); Red Cell Distribution Width 12.5 % (11.6-14.8); White Blood Cell Count 9.5 X10^3/uL (4.5-11.0)
[2022-01-06 18:46] LABS: Alanine Aminotransferase 33 IU/L (<35); Albumin 4.2 g/dL (3.5-5.0); Albumin Globulin Ratio 1.5 (1.0-2.8); Alkaline Phosphatase 61 U/L (38-126); Aspartate Aminotransferase 32 IU/L (14-36); BUN Creatinine Ratio 14.1 (6-22); Bilirubin Total 0.6 mg/dL (0.2-1.3); Blood Urea Nitrogen 11 mg/dL (7-17); Calcium 9.2 mg/dL (8.4-10.2); Carbon Dioxide 19 mmol/L (22-32); Chloride 111 mmol/L (98-107); Creatine Kinase 61 U/L (30-135); Estimated Glomerular Filt Rate > 60 mL/min (>60); Globulin 2.8 g/dL (1.7-4.1); Glucose 132 mg/dL (70-100); HEMOLYSIS < 15 (0-50); Lipase 112 U/L (23-300); Magnesium 2.2 mg/dL (1.6-2.3); Potassium 3.9 mmol/L (3.4-5.1); Sodium 141 mmol/L (137-145)
[2022-01-06 18:47] LABS: Lactate (Lactic Acid) 1.6 mmol/L (0.7-2.1)
[2022-01-06] MEDS: SODIUM CHLORIDE 0.9% 1,000 ML 1000 ML IV (18:51)
[2022-01-06] MEDS: HYDROMORPHONE 0.5 MG INJ IV (18:52)
[2022-01-06] MEDS: KETOROLAC 30 MG/ML VIAL 15 MG IV (18:53)
[2022-01-06] MEDS: ONDANSETRON 4 MG/2 ML INJ IV (18:53)
[2022-01-06] MEDS: PANTOPRAZOLE 40 MG VIAL IV (18:53)
[2022-01-06 18:57] LABS: Troponin I < 0.012 ng/mL (0.01-0.034)
[2022-01-06 19:02] LABS: Procalcitonin 0.03 ng/mL (<0.5)
[2022-01-06 20:19] LABS: Appearance Urine UA SL CLOUDY; Bilirubin Urine UA NEGATIVE (NEGATIVE); Color Urine UA YELLOW; Glucose Urine UA NEGATIVE (Negative); Ketones Urine UA TRACE (NEGATIVE); Leukocyte Esterase Urine UA NEGATIVE (NEGATIVE); Nitrite Urine UA NEGATIVE (Negative); Occult Blood Urine UA NEGATIVE (Negative); Protein Urine UA NEGATIVE (Negative); Urobilinogen Urine UA 0.2 E.U./dL (0.2)
[2022-01-06 20:24] LABS: RBC Urine 0-1/HPF (0-5/HPF); Squamous Epithelial Cell Urine 1-5 /HPF (0-5/HPF); WBC Urine 0-1/HPF (0-5/HPF)
[2022-01-06 20:25] LABS: Bacteria Urine Few (2-10); Culture Indicated Urine Cult Not Indicated
[2022-01-06 20:37] LABS: COVID19 -Nasal RAPID Negative (Negative)
== END 2022-01-06 20:49 | disposition home or self-care (01) ==
PROVIDERS: Emergency Medicine; Emergency Provider Nurse Practitioner Critical Care Medicine; PCP Family Medicine
DX: K80.20 Calculus of gallbladder without cholecystitis without obstruction (principal); R10.11 Right upper quadrant pain; R11.2 Nausea with vomiting, unspecified; R07.9 Chest pain, unspecified; Z20.822 Contact with and (suspected) exposure to COVID-19
CPT/HCPCS: 36415; 71045; 74177; 80053; 81001; 81003; 81025; 82550; 83605; 83690; 83735; 84145; 84484; 85025; 87086; 87635; 93005; 93010; 96361; 96374; 96375; 99284; C9803; C9113; J1170; J1885; J2405; Q9967

== ENCOUNTER → 2022-03-10 09:02 | Outpatient (CLI) | payer OTHER, MEDICAID, SELFPAY ==
[2022-03-10 10:48] LABS: COVID19 -Nasal RAPID Negative (Negative)
== END ==
PROVIDERS: PCP Family Medicine; Visit Provider Surgery
DX: Z20.822 Contact with and (suspected) exposure to COVID-19 (principal); Z01.812 Encounter for preprocedural laboratory examination
CPT/HCPCS: 87635; C9803

== ENCOUNTER 2022-03-11 06:50 | Day surgery (SDC) | payer OTHER, MEDICAID, SELFPAY ==
[2022-03-05 13:29] VITALS: BMI 37.4
[2022-03-11] VITALS (14 sets, daily range): BP systolic 110–142; BP diastolic 51–77; PULSE 56–74; RESP 11–24; TEMP 36.1–36.5; O2SAT 95–99; BMI 37.4
--- NOTE | 2022-03-11 | PATH_ITS ---
[facility] Accession Number: [id number] . 01 Material submitted: . gallbladder - GALLBLADDER . 01 Diagnosis: Gallbladder, Cholecystectomy: Chronic cholecystitis, cholesterolosis, and cholelithiasis. Negative for dysplasia and malignancy. MRV 03/13/2022 1651 Local . 01 Electronically signed: . Pari Fisher MD, Pathologist NPI- [id number] . 01 Gross description: . The specimen is received in formalin labeled with the patient's name and gallbladder, and consists of an intact gallbladder measuring 7.7 x 2.6 x 1.2 cm. The serosa is jones and smooth while the hepatic surface is rough and unremarkable. The cystic duct is received closed with a clamp, is inked blue, and no pericystic lymph node is identified. Opening the specimen reveals a small amount of green viscous bile with a single yellow bosselated calculus identified measuring 0.5 cm in greatest dimension. The mucosa is green and velvety with numerous pinpoint yellow areas consistent with cholesterol deposits and a yellow polypoid structure measuring 0.2 cm in greatest dimension. No additional lesions are identified, and the gates average 0.3 cm thick. Industrial [employer]per sections to include the cystic duct margin and full-thickness sections are submitted in cassette A1. ([id number]) /MRV 03/12/2022 1314 Local . 01 Pathologist provided ICD-10: K81.1 . 01 CPT . 627961 Specimen Comment: A courtesy copy of this report has been sent to [phone] Performed at: 01 [facility] [address] [place] [address] Suite [facility], [place], [place] [id number] MD Marck Pulido MD Phone: [phone]
--- NOTE | 2022-03-11 07:54 | PM.PREOP ---
Pre-operative Note COVID-19 COVID-19 status: Negative Result date/Date tested (Pos, Neg/Pending): 03/10/22 Interval Note History & Physical reviewed/Exam performed by Physician: Yes Changes to H&P: No ASA Class (for procedural sedation): II
[2022-03-11] MEDS: LACTATED RINGERS 1,000 ML 100 ML IV (07:55)
[2022-03-11] MEDS: CEFAZOLIN 2 GM/100 ML PREMIX 100 ML IV (08:10)
[2022-03-11] MEDS: BUPIVACAINE 0.5% W/ EPI (PF) 30 ML VIAL INJ (08:23)
--- NOTE | 2022-03-11 08:25 | SUR.OPER ---
Supine on padded OR bed, head on pillow, safety belt at thigh, Bilateral arms secured on padded arm board <90 degrees abduction. Legs uncrossed. Padded footboard in place. Tape over blanket to secure lower legs. Gel pad under bilateral heels.
[2022-03-11] MEDS: hydrOXYzine 50 MG/ML INJ 25 MG IM (09:44)
[2022-03-11] MEDS: KETOROLAC 30 MG/ML VIAL IV (10:34)
[2022-03-11] MEDS: ACETAMINOPHEN IV 1,000 MG/100 ML VIAL 400 MG IV (10:35)
--- NOTE | 2022-03-25 13:48 | PM.OP.1 ---
Operative Date/Time/Diagnoses Date of procedure: 03/11/22 Pre-op diagnosis: Gallstones Post-op diagnosis: same Procedure & Clinicians Procedure: Laparoscopic cholecystectomy Same procedure as scheduled: Yes Surgeon: Joce Wilson Operative Notes Procedure in detail: The patient was given preoperative antibiotic. The patient was brought to the operating room, placed on the table in the supine position. General endotracheal anesthesia was induced. The abdomen was prepped and draped. A time-out was performed. We made a 1 cm infraumbilical incision. We dissected down to the base of the umbilical stalk using cautery. We grasped the umbilical stalk with a Wilma clamp to elevate the abdominal wall. We scored the fascia in the midline with cautery 1 cm. We pierced the peritoneum with a Peon clamp. The Price port was placed and the abdomen was insufflated to 15 mmHg. A 5 mm 30 degree laparoscopic was inserted. There was no evidence of any injury from the entry. Next, we placed 5 mm ports in the subxiphoid position and right upper quadrant at the midclavicular line and anterior axillary line. Patient was then positioned in reverse Trendelenburg and the table was tilted to the left. The gallbladder was grasped at the dome and retracted cephalad. We then dissected the cystic structures with a combination of hook cautery and blunt dissection. We obtained a critical view. We placed clips on the cystic duct and artery and divided the cystic duct and artery sharply between the clips. The gallbladder was then dissected off the liver and placed in a specimen retrieval bag. We irrigated the right upper quadrant and all the aspirate returned clear. We then removed the 5 mm ports under direct vision we removed the Priec port. We then injected some local into the fascia and closed the fascia with 2 interrupted 0 Vicryl sutures. The skin incisions were closed with 4-0 Monocryl and Steri-Strips were applied. Band-Aids were applied over the Steri-Strips. EBL: 10 mL Specimen: Gallbladder Post-operative Disposition: PACU
== END 2022-03-11 11:40 | disposition home or self-care (01) ==
PROVIDERS: PCP Family Medicine; Referring Provider Surgery; Visit Provider Surgery
PROC: 0FT44ZZ Resection of Gallbladder, Percutaneous Endoscopic Approach (ICD-10-PCS; CPT 47562; principal; 2022-03-11 07:45)
DX: K80.10 Calculus of gallbladder with chronic cholecystitis without obstruction (principal)
CPT/HCPCS: 47562; 81025; J0131; J0330; J0690; J1100; J1170; J1885; J2250; J2405; J2704; J3410

== ENCOUNTER → 2022-05-28 11:53 | Outpatient (CLI) | payer OTHER, MEDICAID, SELFPAY ==
--- NOTE | 2022-05-28 | DI.MRI.S_ITS ---
PROCEDURE: MR HEAD/BRAIN WO/W CON INDICATIONS: Unspecified optic neuritis TECHNIQUE: Noncontrast sagittal and axial FLAIR, axial and coronal T2 fast spin echo, axial VIBE, axial gradient echo, axial diffusion and ADC through the brain. After the administration of contrast, axial and coronal and sagittal VIBE with fat saturation through the brain. Postcontrast 3 mm slices through the orbits were also performed in the axial, sagittal, and coronal plane. COMPARISON: None. FINDINGS: Image quality: Excellent. CSF spaces: Ventricles are normal in size and shape. Basal cisterns are patent. No extra-axial fluid collections. Brain: No intracranial bleeds or mass effects. Lindsey-white matter interface appears intact. A few punctate foci of T2/FLAIR in the bilateral frontal lobes measuring 2-4 mm are nonenhancing and nonspecific. No abnormal intracranial enhancement. Diffusion weighted images show no acute ischemic insults. Brainstem appears normal. Normal intravascular flow voids are present. No abnormal post gadolinium enhancement. No abnormal enhancement of the optic nerves. Skull and face: Calvarial marrow signal is normal. Orbits appear normal. Sinuses: Sinuses and mastoids are clear. IMPRESSION: 1. Punctate foci of T2/FLAIR in the bilateral frontal lobes are nonspecific but could be early MS plaques. 2. No enhancement of the optic nerves to suggest optic neuritis. Dictated by: Cory Camacho M.D. on 05/28/2022 at 14:27 Approved by: Cory Camacho M.D. on 05/28/2022 at 14:32
== END ==
PROVIDERS: PCP Family Medicine; Referring Provider Psychiatry & Neurology Neurology; Visit Provider Psychiatry & Neurology Neurology
DX: H46.9 Unspecified optic neuritis (principal)
CPT/HCPCS: 70553

== ENCOUNTER → 2022-07-09 11:39 | Outpatient (CLI) | payer OTHER, MEDICAID, SELFPAY ==
--- NOTE | 2022-07-09 | DI.US.S_ITS ---
LIMITED ULTRASOUND OF RIGHT BREAST: 07/09/2022 CLINICAL: Palpable right breast lump. Comparison is made to exam dated: 07/09/2022 mammogram - . Color flow and real-time ultrasound of the right breast 10-12 o'clock region were performed. Lindsey scale images of the real-time examination were reviewed. No significant abnormalities were seen sonographically in the right breast. IMPRESSION: NEGATIVE There is no sonographic evidence of malignancy. This exam was interpreted at Station ID: [id number]. Electronically Signed By: Charanjit De La Rosa M.D., jr/xochitl:07/09/2022 13:29:14 letter sent: Normal Exam Ultrasound BI-RADS: 1 Negative
--- NOTE | 2022-07-09 | DI.MG.S_ITS ---
BILATERAL DIGITAL DIAGNOSTIC MAMMOGRAM 3D/2D: 07/09/2022 CLINICAL: Palpable right breast lump. Baseline exam. No prior exams were available for comparison. Both breasts are extremely dense, which lowers the sensitivity of mammography (category d />75% glandular tissue). No significant masses, calcifications, or other findings are seen in either breast. IMPRESSION: INCOMPLETE: NEEDS ADDITIONAL IMAGING EVALUATION No suspicious finding. An ultrasound of the reportedly palpable finding, which has reportedly resolved, will be performed. This exam was interpreted at Station ID: [id number]. NOTE: For mammograms, a report in lay terms will be sent to the patient. Approximately 15% of breast malignancies will not be visualized mammographically. In the management of a palpable breast mass, a negative mammogram must not discourage biopsy of a clinically suspicious lesion. Electronically Signed By: Charanjit De La Rosa M.D. jr/:07/09/2022 13:28:33 ACR BI-RADS Category 0: Incomplete 3340F
== END ==
PROVIDERS: PCP Family Medicine; Referring Provider Family Medicine; Visit Provider Family Medicine
DX: N63.11 Unspecified lump in the right breast, upper outer quadrant (principal); Z80.3 Family history of malignant neoplasm of breast; R92.2 Inconclusive mammogram
CPT/HCPCS: 76642; 77066; G0279

== ENCOUNTER → 2022-09-23 08:45 | Outpatient (CLI) | payer OTHER, MEDICAID, SELFPAY ==
--- NOTE | 2022-09-23 | DI.RAD.S_ITS ---
PROCEDURE: XR CHEST 2V INDICATIONS: chest pain TECHNIQUE: 2 views of the chest were acquired. COMPARISON: Located Within [facility], CR, XR CHEST 1V, 01/06/2022, 17:52. FINDINGS: Surgical changes and devices: None. Lungs and pleura: Lungs are clear. No pleural effusions or pneumothorax. Mediastinum: Mediastinal contours are normal. Heart size is normal. Bones and chest wall: No suspicious bony abnormalities. Soft tissues appear unremarkable. IMPRESSION: No acute cardiopulmonary process. Dictated by: Edson Randhawa M.D. on 09/23/2022 at 10:22 Approved by: Edson Randhawa M.D. on 09/23/2022 at 10:22
--- NOTE | 2022-09-23 | DI.MRI.S_ITS ---
PROCEDURE: MR BREAST BI WO CON INDICATIONS: screening for malignant neoplasm of breast TECHNIQUE: The patient was placed prone in a dedicated breast imaging coil. Axial bilateral STIR, axial and sagittal STIR with water saturation (silicone selective), sagittal T2 fast spin echo with fat saturation, and coronal T2 fast spin echo without fat saturation sequences were acquired. COMPARISON: Diagnostic mammogram and ultrasound July 09, 2022 FINDINGS: Image quality: Good Mild background parenchymal enhancement.. Right breast: In the right breast at 11 o'clock position anterior depth or about 4 centimeters from the nipple, there is a 6 x 5 millimeter area of focal non-mass enhancement. See series 14, image 56. No other suspicious mass, non-mass enhancement, or focus seen in the right breast. Left breast: No suspicious mass, non-mass enhancement, or focus No suspicious adenopathy in the field of view. IMPRESSION: Focal area of non-mass enhancement measuring 6 x 5 millimeters is seen in the right breast at about 11 o'clock, 4 centimeters from nipple, anterior depth see series 14, image 56. A second-look ultrasound is recommended to see if there is a corresponding mass. No suspicious findings in the left breast. BIRADS 0: Recommend second-look ultrasound. Dictated by: Altaf De Los Santos M.D. on 09/23/2022 at 10:39 Approved by: Altaf De Los Santos M.D. on 09/23/2022 at 10:54
== END ==
PROVIDERS: PCP Family Medicine; Referring Provider Family Medicine; Visit Provider Family Medicine
DX: R07.9 Chest pain, unspecified (principal); Z12.39 Encounter for other screening for malignant neoplasm of breast; N64.89 Other specified disorders of breast
CPT/HCPCS: 71046; 77047

== ENCOUNTER → 2022-11-25 11:40 | Outpatient (CLI) | payer OTHER, MEDICAID, SELFPAY ==
--- NOTE | 2022-11-25 | DI.US.S_ITS ---
ULTRASOUND OF RIGHT BREAST: 11/25/2022 CLINICAL: Follow up to abnormal MRI. Comparison is made to exams dated: 09/23/2022 breast MRI, 07/09/2022 ultrasound, and 07/09/2022 mammogram - [facility]. Real-time ultrasound of the right breast was performed on the areas of interest. Lindsey scale images of the real-time examination were reviewed. There is a 0.4 cm x 0.2 cm x 0.4 cm oval mass in the right breast at 11 o'clock posterior depth. This oval mass is hypoechoic with a well-defined boundary, internal echoes, and posterior acoustic enhancement. This correlates with breast MRI findings. IMPRESSION: PROBABLY BENIGN The 0.4 cm x 0.2 cm x 0.4 cm oval mass in the right breast most likely is a fibroadenoma and is probably benign. A follow-up right ultrasound in 6 months is recommended to demonstrate stability. This exam was interpreted at Station ID: [id number]. Electronically Signed By: Luiza knowles/:11/25/2022 12:33:36 letter sent: Followup Recommended Ultrasound BI-RADS: 3 Probably benign
== END ==
PROVIDERS: Family Provider Family Medicine; PCP Family Medicine; Referring Provider Family Medicine; Visit Provider Family Medicine
DX: R92.8 Other abnormal and inconclusive findings on diagnostic imaging of breast (principal); N63.11 Unspecified lump in the right breast, upper outer quadrant
CPT/HCPCS: 76642

== ENCOUNTER → 2023-01-19 12:10 | Outpatient (CLI) | payer OTHER, MEDICAID, SELFPAY ==
[2023-01-19 12:56] LABS: Add Manual Diff / Slide Review NO; Basophils Absolute Auto 100 /uL (0-100); Basophils Percent Auto 0.8 % (0-2); Eosinophils Absolute Auto 200 /uL (0-450); Eosinophils Percent Auto 2.9 % (2-4); Hemoglobin 14.8 g/dL (12.0-16.0); Lymphocytes Absolute Auto 3000 /uL (1100-4500); Lymphocytes Percent Auto 39.4 % (25-40); Mean Corpuscular HGB Conc 34.4 % (30-36); Mean Corpuscular Hemoglobin 31.3 PG (26-34); Mean Corpuscular Volume 90.9 fL (80-100); Monocytes Absolute Auto 400 /uL (0-900); Monocytes Percent Auto 5.6 % (3-14); Neutrophils Absolute Auto 3900 /uL (1500-7000); Neutrophils Percent Auto 51.3 % (50-75); Platelet Count 312 X10^3/uL (150-400); Red Blood Cell Count 4.73 X10^6/uL (4.0-5.2); Red Cell Distribution Width 12.6 % (11.6-14.8); White Blood Cell Count 7.6 X10^3/uL (4.5-11.0)
[2023-01-19 13:17] LABS: Alanine Aminotransferase 24 IU/L (<35); Albumin 4.4 g/dL (3.5-5.0); Albumin Globulin Ratio 1.5 (1.0-2.8); Alkaline Phosphatase 67 U/L (38-126); Aspartate Aminotransferase 34 IU/L (14-36); BUN Creatinine Ratio 14.3 (6-22); Bilirubin Total 0.4 mg/dL (0.2-1.3); Blood Urea Nitrogen 11 mg/dL (7-17); Carbon Dioxide 22 mmol/L (22-32); Chloride 109 mmol/L (98-107); Cholesterol 203 mg/dL (140-199); Estimated Glomerular Filt Rate > 60 mL/min (>60); Globulin 2.9 g/dL (1.7-4.1); Glucose 100 mg/dL (70-100); HDL Cholesterol 55 mg/dL (40-60); HEMOLYSIS < 15 (0-50); LDL Cholesterol Calculated 131 mg/dL (<100); Potassium 4.1 mmol/L (3.4-5.1); Sodium 139 mmol/L (137-145); Total Protein 7.3 g/dL (6.3-8.2); Triglycerides 85 mg/dL (35-150)
[2023-01-19 13:38] LABS: Free T4, Direct Thyroxine 1.05 ng/dL (0.78-2.19)
[2023-01-19 13:52] LABS: Thyroid Stimulating Hormone 1.39 uIU/mL (0.47-4.68)
[2023-01-19 16:16] LABS: Creatinine Urine Random 190.1 mg/dL
[2023-01-19 16:20] LABS: Microalbumi Creatinin Ratio Ur 3.1 ug/mg CR (<30); Microalbumin Urine Random 0.6 mg/dL (0-1.6)
[2023-01-21 07:43] LABS: Labcorp Hemoglobin (Hb) A1c 5.2 % (4.8-5.6)
[2023-01-21 17:48] LABS: HIV 1 & 2 Ab/Ag 4th Gen Combo NEGATIVE (NEGATIVE); Hep C Virus Ab w/Reflex Quant NEGATIVE s/c (NEGATIVE)
[2023-01-22 12:41] LABS: Lamotrigine Lamictal <1.0 ug/mL (2.0-20.0)
== END ==
PROVIDERS: Family Provider Family Medicine; PCP Nurse Practitioner; Referring Provider Nurse Practitioner; Visit Provider Nurse Practitioner
DX: Z00.00 Encounter for general adult medical examination without abnormal findings (principal); F32.A Depression, unspecified; R73.01 Impaired fasting glucose; Z11.59 Encounter for screening for other viral diseases; Z79.899 Other long term (current) drug therapy; Z11.4 Encounter for screening for human immunodeficiency virus [HIV]
CPT/HCPCS: 36415; 80053; 80061; 80175; 82043; 82570; 83036; 84439; 84443; 84481; 85025; 86803; 87389

== ENCOUNTER 2023-02-17 14:00 | Outpatient (RCR) | payer OTHER, MEDICAID, SELFPAY ==
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
--- NOTE | 2023-01-13 11:02 | PT.OPPOC ---
Physical, Occupational & Speech Therapy At [facility] Current Diagnoses Unspecified optic neuritis (01/13/23) Unqualified visual loss, both eyes (01/13/23) Pain in right knee (01/13/23) Other abnormalities of gait and mobility (01/13/23) Dizziness and giddiness (01/13/23) Unspecified intracranial injury with loss of consciousness status unknown, sequela (01/13/23) History of falling (01/13/23) Visit Care Team Role Provider Type Natasha Mckinley MD Family Provider Non-Staff Primary Care Provider Specialty: Medical Address: [address] [place] [address], [id number] Email: Hong Menjivar MD Attending Provider Non-Staff Referring Provider Specialty: Neurology Address: [facility] [facility], [address] [facility], [place], [address] Email: Plan Of Care PT-OP-T Assessment and Plan Start: 10/26/22 15:56 Freq: Status: Active Protocol: Document 01/13/23 10:15 DCW (Rec: 01/13/23 11:01 DCW [id number]) Physical Therapy Assessment Goals Three Impairment Dizziness Short Term Goal (STG) Steve will perform her bed mobility without an increase in dizziness. STG Duration 6 weeks Two Impairment Gait Short Term Goal (STG) Steve will ambulate with an appropriate AD for 400' without LOB and without an increase in knee pain. STG Duration 6 weeks Light Bulb Replacer Goal (LTG) Steve will ambulate with SBA over uneven terrain including grass and gravel without LOB. LTG Duration 12 weeks One Impairment Balance Short Term Goal (STG) Steve will be independent in a HEP for balance and dizzines. STG Duration 6 weeks Light Bulb Replacer Goal (LTG) Steve will show improved balance by standing with NBOS for 30 seconds without LOB. 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 Pt admits she still processing a lot of this information, and unsure what her future holds. As far as PT is concerned, showing good progress with knee strength and stability with ambulation, knee ROM WNL. Pt feeling much more comfortable on uneven surfaces. Physical Therapy Plan Frequency and Duration Frequency of Treatment 1x/Week Duration of treatment (weeks) 12 Plan of Care Start Date 01/13/23 Plan of Care End Date 04/07/23 Therapeutic Interventions Therapeutic Interventions Balance Training,Gait Training ,Home Exercise Program,Joint Mobilizations,Manual Therapy, Neuromuscular Re-education, Self-Care/Home Management, Therapeutic Activities, Therapeutic Exercises, Vestibular Rehabilitation Modalities Cold Pack/Ice Massage,Electric Stimulation,Hot Packs Next Visit Focus/Plan Next Note Type Treatment Note Next Visit Plan Continue to fine-tune HEP for R LE weakness and fall prevention, increase balance challenges. Plan of Care Dates Plan of Care Start Date 01/13/23 Plan of Care End Date 04/07/23 Electronically Signed by: Yaniv Juan, PT 01/13/23 5212 If you are in agreement with this Plan of Care, please return a signed and dated copy. I have reviewed this Plan of Care and certify that the skilled therapy services above are required to meet the patient?s needs. Physician Signature Date Printed Name and Credentials Clinical Instructor Signature Printed Name and Credentials
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
== END 2023-08-30 10:20 | disposition home or self-care (01) ==
LOC: PHYS 14:00
PROVIDERS: Absent Provider Family Medicine; Family Provider Family Medicine; PCP Family Medicine; Referring Provider Psychiatry & Neurology Neurology; Visit Provider Psychiatry & Neurology Neurology
DX: H46.9 Unspecified optic neuritis (principal); R26.89 Other abnormalities of gait and mobility; S06.9XAS Unspecified intracranial injury with loss of consciousness status unknown, sequela; Z91.81 History of falling; H54.3 Unqualified visual loss, both eyes; R42 Dizziness and giddiness; M25.561 Pain in right knee
CPT/HCPCS: 95992; 97110; 97112; 97116; 97140; 97162; 97535

== ENCOUNTER → 2023-06-08 09:22 | Outpatient (CLI) | payer OTHER, MEDICAID, SELFPAY | PROVIDERS: Family Provider Family Medicine; PCP Nurse Practitioner; Referring Provider Family Medicine; Visit Provider Family Medicine | DX: R92.8 Other abnormal and inconclusive findings on diagnostic imaging of breast (principal) | CPT/HCPCS: 81002; 81025 ==

== ENCOUNTER → 2023-06-23 10:27 | Outpatient (CLI) | payer OTHER, MEDICAID, SELFPAY ==
--- NOTE | 2023-06-23 10:29 | DI.MG.S_ITS ---
BILATERAL DIGITAL DIAGNOSTIC MAMMOGRAM 3D/2D SHORT-TERM FOLLOW-UP: 06/23/2023 CLINICAL: Patient returns for a 6 month follow up of the right breast, due for bilateral exam. Comparison is made to exams dated: 07/09/2022 mammogram, 09/23/2022 breast MRI, and 11/25/2022 ultrasound - [facility]. Both breasts are heterogeneously dense, which may obscure small masses (category c / 51-75% glandular tissue). No significant masses, calcifications, or other findings are seen in either breast. IMPRESSION: INCOMPLETE: NEEDS ADDITIONAL IMAGING EVALUATION There is no abnormality seen in the right breast to correspond with the breast MRI finding and ultrasound finding, however, ultrasound is recommended. Based on the Tyrer Cuzick model (a risk assessment model) the patient's lifetime risk is 16.5% and her 10 year risk is 1.2%. According to the ACR, ACS, and NCCN guidelines, an annual breast MRI exam along with mammogram is recommended if the patient's lifetime risk is 20% or greater. This exam was interpreted at Station ID: [id number]. NOTE: For mammograms, a report in lay terms will be sent to the patient. Approximately 15% of breast malignancies will not be visualized mammographically. In the management of a palpable breast mass, a negative mammogram must not discourage biopsy of a clinically suspicious lesion. Electronically Signed By: Immanuel scott/xocihtl:06/23/2023 19:55:30 ACR BI-RADS Category 0: Incomplete [id number]
--- NOTE | 2023-06-23 10:29 | DI.US.S_ITS ---
LIMITED ULTRASOUND OF RIGHT BREAST: 06/23/2023 CLINICAL: 6 month follow-up of cysts. Comparison is made to exams dated: 06/23/2023 mammogram, 11/25/2022 ultrasound, 09/23/2022 breast MRI, 07/09/2022 ultrasound, and 07/09/2022 mammogram - [facility]. Color flow ultrasound of the right breast 11 o'clock region was performed. Lindsey scale images of the real-time examination were reviewed. There is a 0.4 cm x 0.2 cm x 0.4 cm oval mass with a circumscribed margin in the right breast at 11 o'clock posterior depth 4 cm from the nipple. This oval mass is hypoechoic with a well-defined boundary, internal echoes, and posterior acoustic enhancement. This abnormality is not significantly changed and correlates with breast MRI findings. IMPRESSION: PROBABLY BENIGN The 0.4 cm x 0.2 cm x 0.4 cm oval mass in the right breast most likely is a fibroadenoma and is probably benign. A follow-up mammogram and an ultrasound in 12 months is recommended. This exam was interpreted at Station ID: [id number]. Electronically Signed By: Immanuel scott/xochitl:06/23/2023 19:59:21 letter sent: Followup Recommended Ultrasound BI-RADS: 3 Probably benign
== END ==
PROVIDERS: Family Provider Family Medicine; PCP Nurse Practitioner; Referring Provider Nurse Practitioner; Visit Provider Nurse Practitioner
DX: R92.8 Other abnormal and inconclusive findings on diagnostic imaging of breast (principal); N63.11 Unspecified lump in the right breast, upper outer quadrant
CPT/HCPCS: 76642; 77066; G0279

== ENCOUNTER 2023-08-12 10:40 | Day surgery (SDC) | payer OTHER, MEDICAID, SELFPAY ==
[2023-08-09 18:04] VITALS: BMI 37.5
[2023-08-12] VITALS (9 sets, daily range): BP systolic 118–148; BP diastolic 67–79; PULSE 59–89; RESP 10–21; TEMP 36.3–36.7; O2SAT 95–98; BMI 38.1
--- NOTE | 2023-08-12 | PATH_ITS ---
[facility] Accession Number: [id number] No. of containers..01 Tissue . 01 Material submitted: . endometrium - ENDOMETRIAL CURETTINGS . 01 Diagnosis: ENDOMETRIUM, CURETTAGE: Inactive endometrium with progestin effect. Negative for hyperplasia and neoplasia. MRV 08/17/2023 1703 Local . 01 Electronically signed: . Pari Fisher MD, Pathologist NPI- [id number] . 01 Gross description: . ENDOMETRIAL CURETTINGS: Received in formalin are minute fragments of mucoid and hemorrhagic material measuring 3.0 x 1.5 x 0.3 cm in aggregate. Submitted in toto in 1 cassette. /AAY 08/13/2023 0536 Local . 01 Pathologist provided ICD-10: N92.0 . 01 CPT . 615748 Specimen Comment: A courtesy copy of this report has been sent to [phone] Performed at: 01 [facility] [address] [place] [address], [place], [place] [id number] MD Marck Pulido MD Phone: [phone]
[2023-08-12] MEDS: LACTATED RINGERS 1,000 ML 21 ML IV ×2 (10:57→13:52)
[2023-08-12] MEDS: ACETAMINOPHEN 325 MG TABLET 975 MG PO (11:10)
--- NOTE | 2023-08-12 12:27 | PM.PREOP ---
Pre-operative Note Interval Note History & Physical reviewed/Exam performed by Physician: Yes Changes to H&P: No H&P completed within 30 days and has changed as indicated here:: 08/10/23
--- NOTE | 2023-08-12 13:02 | SUR.OPER ---
Lithotomy on padded OR bed, head on pillow, arms secured on padded arm boards at <90 degrees abduction. Legs secured in padded yellow fins stirrups.
--- NOTE | 2023-08-12 13:21 | PM.GYNOP.1 ---
Operative Date/Time/Diagnoses Date of procedure: 08/12/23 Time of procedure: 13:21 Pre-op diagnosis: Menorrhagia Patient is legally blind Post-op diagnosis: same Procedure & Clinicians Procedure: Procedures Operation Date: 08/12/23 12:00 Actual Procedure Side Surgeon p D&C Hysteroscopy w/ Novasure Ablation Lara Jay MD Indications: Patient is a 37-year-old 0 who presents today for a D&C hysteroscopy with NovaSure endometrial ablation due to menorrhagia. Patient is legally blind and does not live in a place where she has running water. She is having increasing difficulty dealing with the heavy bleeding. Surgeon: Lara Jay Anesthesia Type: General (LMA) Operative Notes Findings: 6 week size anteverted uterus Both fallopian tube ostia observed No polyps or fibroids Closure Type: not applicable Specimen(s): endometrial curettings Estimated blood loss (mL): 10 Blood products transfused: none Procedure in detail: The patient was taken to the operating room where she was placed in the dorsal supine position. After adequate LMA general anesthesia was achieved, she was placed in the dorsal lithotomy position, and prepped and draped in the usual sterile fashion. A time-out was performed. A bivalve speculum was placed into the vagina and the anterior lip of the cervix was grasped with a single-tooth tenaculum. The cervical os was sequentially dilated to the #8 Hegar dilator. The MyoSure hysteroscope pass easily into the endometrial cavity. Both fallopian tube ostia were observed. There were no polyps or fibroids. The hysteroscope was removed from the uterus. The uterus was measured from the internal os to the fundus and measured 4.5 cm. This was set on the NovaSure catheter and the generator. The NovaSure catheter passed easily into the endometrial cavity and was opened. The width was 3.5 cm. This indicated a power of 87 w. The cervix was capped, the cavity assessment was performed and passed. The cycle was initiated and lasted 1 minute and 21 seconds. At the completion of the cycle the catheter was closed, the cervix was uncapped, and the catheter was removed from the uterus. As the single-tooth tenaculum was removed from the anterior lip of the cervix there was some bleeding noted from the right tenaculum site. A ring forceps was placed for 2 minutes and hemostasis was achieved. The ring forceps was removed from the anterior lip of the cervix. The bivalve speculum was removed from the vagina. Sponge, lap, and instrument counts were correct x2. The patient tolerated the procedure well, and was taken to PACU in stable condition. Complications: none Post-operative Condition: stable Disposition: PACU Plan for aftercare: Home after recovery
[2023-08-12] MEDS: OXYCODONE IR 5 MG TABLET PO (13:58)
[2023-08-12] MEDS: ONDANSETRON 4 MG/2 ML INJ IV (14:04)
== END 2023-08-12 14:11 | disposition home or self-care (01) ==
PROVIDERS: Family Provider Family Medicine; PCP Nurse Practitioner; Referring Provider Obstetrics & Gynecology; Visit Provider Obstetrics & Gynecology
PROC: 0U5B8ZZ Destruction of Endometrium, Via Natural or Artificial Opening Endoscopic (ICD-10-PCS; CPT 58563; principal; 2023-08-12 12:00)
DX: N92.0 Excessive and frequent menstruation with regular cycle (principal)
CPT/HCPCS: 58563; J1100; J1170; J1885; J2250; J2405; J2704; J3010

== ENCOUNTER 2023-08-31 13:33 | Emergency (ER) | payer OTHER, MEDICAID, SELFPAY ==
[2023-08-31 13:38] VITALS: BP 145/82; PULSE 65; RESP 16; TEMP 36.8; O2SAT 97; BMI 37.9
--- NOTE | 2023-08-31 14:09 | DI.RAD.S_ITS ---
PROCEDURE: XR CHEST 1V INDICATIONS: chest pain TECHNIQUE: One view of the chest was acquired. COMPARISON: [facility], CR, XR CHEST 2V, 09/23/2022, 9:58. FINDINGS: Surgical changes and devices: None. Lungs and pleura: Lungs are clear. No pleural effusions or pneumothorax. Mediastinum: Mediastinal contours appear normal. Heart size is normal. Bones and chest wall: No suspicious bony lesions. Overlying soft tissues appear unremarkable. IMPRESSION: No acute cardiopulmonary abnormality is seen. Dictated by: Payton Driver M.D. on 08/31/2023 at 14:18 Approved by: Payton Driver M.D. on 08/31/2023 at 14:19
[2023-08-31 14:18] LABS: INR 0.9 (0.9-1.3); Prothrombin Time 10.8 SECONDS (9.4-12.5)
[2023-08-31 14:20] LABS: PTT Partial Thromboplastin Tim 29 SECONDS (25.1-36.5)
[2023-08-31] MEDS: ASPIRIN 81 MG CHEW TAB 324 MG PO (14:20)
[2023-08-31 14:22] LABS: Add Manual Diff / Slide Review NO; Alanine Aminotransferase 27 IU/L (<35); Albumin 4.6 g/dL (3.5-5.0); Albumin Globulin Ratio 1.4 (1.0-2.8); Alkaline Phosphatase 62 U/L (38-126); Aspartate Aminotransferase 39 IU/L (14-36); BUN Creatinine Ratio 15.2 (6-22); Basophils Absolute Auto 100 /uL (0-100); Basophils Percent Auto 0.7 % (0-2); Bilirubin Total 0.6 mg/dL (0.2-1.3); Blood Urea Nitrogen 10 mg/dL (7-17); Calcium 9.1 mg/dL (8.4-10.2); Carbon Dioxide 20 mmol/L (22-32); Chloride 112 mmol/L (98-107); Creatine Kinase 90 U/L (30-135); Eosinophils Absolute Auto 100 /uL (0-450); Eosinophils Percent Auto 1.2 % (2-4); Estimated Glomerular Filt Rate > 60 mL/min (>60); Globulin 3.2 g/dL (1.7-4.1); Glucose 88 mg/dL (70-100); HEMOLYSIS 45 (0-50); Hematocrit 44.2 % (36-46); Lipase 120 U/L (23-300); Lymphocytes Absolute Auto 2700 /uL (1100-4500); Lymphocytes Percent Auto 29.9 % (25-40); Mean Corpuscular HGB Conc 33.9 % (30-36); Mean Corpuscular Hemoglobin 30.7 PG (26-34); Mean Corpuscular Volume 90.8 fL (80-100); Monocytes Absolute Auto 400 /uL (0-900); Monocytes Percent Auto 4.7 % (3-14); Neutrophils Absolute Auto 5700 /uL (1500-7000); Neutrophils Percent Auto 63.5 % (50-75); Platelet Count 338 X10^3/uL (150-400); Red Blood Cell Count 4.87 X10^6/uL (4.0-5.2); Red Cell Distribution Width 12.8 % (11.6-14.8); Sodium 139 mmol/L (137-145); Total Protein 7.8 g/dL (6.3-8.2)
[2023-08-31 14:33] LABS: Troponin I < 0.012 ng/mL (0.01-0.034)
[2023-08-31 16:48] LABS: Troponin I < 0.012 ng/mL (0.01-0.034)
[2023-08-31 17:15] VITALS: PULSE 64; O2SAT 99
[2023-08-31 17:16] VITALS: BP 130/78; PULSE 60; O2SAT 98
[2023-08-31 17:30] VITALS: BP 126/71; PULSE 55; RESP 17; O2SAT 98
[2023-08-31 18:00] VITALS: BP 119/69; PULSE 63; RESP 26; O2SAT 97
--- NOTE | 2023-08-31 18:28 | ED.CHESTPAIN ---
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 Her primary provider sent her to the ER. She notes that she has been having increasing episodes of anxiety is currently on sertraline for this. Often feels that her heart is beating fast and she is going to crawl out of her skin. She has difficulty with sleep both falling asleep, staying asleep and her partner with whom she shares a bed has irregular work hours which further exacerbates sleep routines. She has not complaining of nausea, vomiting, abdominal pain. Related Data Home Medications Medication Instructions Recorded Confirmed cetirizine 10 mg tablet (Zyrtec) 10 mg PO DAILY PRN allergies 11/18/22 08/27/23 pregabalin 100 mg capsule (Lyrica) 100 mg PO BID 11/18/22 08/27/23 acetaminophen See Rx Instructions PO PRN PRN 01/19/23 08/27/23 Pain (Scale Score 1-3) cholecalciferol (vitamin D3) 2,000 unit PO .QD 01/19/23 08/27/23 ibuprofen 600 mg tablet 600 mg PO Q6H PRN Pain (Scale 01/19/23 08/27/23 Score 4-6) lidocaine 5 % topical patch 0 patch topical DAILY 01/19/23 08/27/23 Previous Rx's Medication Instructions Recorded lamotrigine 25 mg tablet 25 mg PO BID #180 tabs 06/08/23 sertraline 100 mg tablet 150 mg (1.5 x 100 mg) PO DAILY 06/08/23 #135 tabs nystatin 100,000 unit/gram topical 1 applic topical DAILY #30 grams 08/27/23 powder buspirone 7.5 mg tablet 7.5 mg PO BID #60 tabs 08/31/23 Allergies Allergy/AdvReac Type Severity Reaction Status Date / Time No Known Drug Allergies Allergy Verified 08/31/23 13:38 Review of Systems Review of Systems Narrative: Pertinent positive and negative findings as per HPI Patient History Medical History (Updated 08/31/23 @ 19:07 by Micheal Jenkins) Genetic disorder of mitochondria Allergies Anxiety Neurologic disorder (~1995) Migraines History of developmental delay (~1995) Fracture (~2020) Foot pain (~1999) Chronic back pain Carpal tunnel syndrome (~2014) Chicken pox (~1992) TBI (traumatic brain injury) (~2020) Vertigo (~2019) Partial blindness (~1995) Painful menstrual periods Irregular menstrual cycle Heavy menstrual period (~1998) 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 Blind painful eye Right tibial fracture Depression PTSD (post-traumatic stress disorder) Blind (~2020) Head injury Optic neuritis Surgical History (Updated 08/16/23 @ 10:08 by Lara Jay MD) Anesthesia Hx laparoscopic cholecystectomy (~2022) H/O knee surgery Family History Mother Heart disease Hypertension Ovarian cancer Breast cancer Brother Diabetes mellitus Mental health problem Father Hypertension Stroke Sister Accident Social History marital status: unmarried,single household members: foster family lives independently: Yes Smoking Status: Current every day smoker substance use type: marijuana Smoking Status: Current every day smoker tobacco type: cigarettes alcohol intake frequency: holidays/special occasions only Alcohol type: beer Substance Use Type: former substance user, marijuana and methamphetamine Exam Initial Vital Signs Initial Vital Signs: Vital Signs Temperature 98.3 F 08/31/23 13:38 Pulse Rate 65 08/31/23 13:38 Respiratory Rate 16 08/31/23 13:38 Blood Pressure 145/82 H 08/31/23 13:38 Pulse Oximetry 97 08/31/23 13:38 Oxygen Delivery Method Room Air 08/31/23 13:38 General: Healthy appearing, in no acute distress. Able to give a complete and coherent history. Well-nourished well-developed HEENT: Moist mucous membranes, patient is blind Respiratory: Lungs are clear to auscultation, no wheezing no rales no rhonchi. Full and symmetrical air movement Cardiac: Regular rate and rhythm no murmurs no bruits Abdomen: Soft, nontender, good bowel tones, no flank pain Skin: Warm and dry, no rashes Neurologic: Grossly neurologically intact with no obvious asymmetries or abnormalities Extremities: No trauma, well perfused Psych: Cooperative, appropriate insight and affect Course Orders Ordered: ED Orders 08/31/23 13:56 Complete Blood Count AUTO DIFF Stat Comprehensive Metabolic Panel Stat Lipase Stat Magnesium Stat PTT Partial Thromboplastin Lai Stat Prothrombin Time INR Stat Troponin & CK Cardiac Panel Stat 08/31/23 14:04 EKG-12 Lead Stat 08/31/23 14:09 XR chest 1V Stat 08/31/23 15:45 Trop I [Troponin I] Stat 08/31/23 17:16 EKG-12 Lead Routine Discontinued Medications Aspirin (Aspirin 81 Mg Chew Tab) 324 mg PO NOW ONE Stop: 08/31/23 14:10 Last Admin: 08/31/23 14:20 Dose: 324 mg Documented By: MPO Epinephrine (Racepinephrine 0.5 Ml Neb) 0.5 ml INH RTQ4HR PRN PRN Reason: Shortness Of Breath Vital Signs Vital signs: Vital Signs - 8 hr 08/31/23 13:38 08/31/23 17:15 08/31/23 17:16 Temperature 98.3 F Pulse Rate 65 64 60 Respiratory Rate 16 Blood Pressure 145/82 H Pulse Oximetry 97 99 98 Oxygen Delivery Method Room Air 08/31/23 17:16 08/31/23 17:30 08/31/23 17:30 Temperature Pulse Rate 55 L Respiratory Rate 17 Blood Pressure 130/78 126/71 Pulse Oximetry 98 Oxygen Delivery Method 08/31/23 18:00 08/31/23 18:00 Temperature Pulse Rate 63 Respiratory Rate 26 H Blood Pressure 119/69 Pulse Oximetry 97 Oxygen Delivery Method MDM - Chest Pain Lab Data 08/31/23 13:56 08/31/23 13:56 Labs: Lab Results 08/31/23 08/31/23 Range/Units 13:56 15:45 WBC 9.0 (4.5-11.0) X10^3/uL RBC 4.87 (4.0-5.2) X10^6/uL Hgb 15.0 (12.0-16.0) g/dL Hct 44.2 (36-46) % MCV 90.8 (80-100) fL MCH 30.7 (26-34) PG MCHC 33.9 (30-36) % RDW 12.8 (11.6-14.8) % Plt Count 338 (150-400) X10^3/uL Neut % (Auto) 63.5 (50-75) % Lymph % (Auto) 29.9 (25-40) % [place] % (Auto) 4.7 (3-14) % Eos % (Auto) 1.2 L (2-4) % Baso % (Auto) 0.7 (0-2) % Neut # (Auto) 5700 (6774-1986) /uL Lymph # (Auto) 2700 (4488-7969) /uL [place] # (Auto) 400 (0-900) /uL Eos # (Auto) 100 (0-450) /uL Baso # (Auto) 100 (0-100) /uL PT 10.8 (9.4-12.5) SECONDS INR 0.9 (0.9-1.3) APTT 29 (25.1-36.5) SECONDS Sodium 139 (137-145) mmol/L Potassium 4.0 (3.4-5.1) mmol/L Chloride 112 H (98-107) mmol/L Carbon Dioxide 20 L (22-32) mmol/L BUN 10 (7-17) mg/dL Creatinine 0.66 (0.52-1.04) mg/dL Estimated GFR > 60 (>60) mL/min BUN/Creatinine Ratio 15.2 (6-22) Glucose 88 (70-100) mg/dL Calcium 9.1 (8.4-10.2) mg/dL Magnesium 2.0 (1.6-2.3) mg/dL Total Bilirubin 0.6 (0.2-1.3) mg/dL AST 39 H (14-36) IU/L ALT 27 (<35) IU/L Alkaline Phosphatase 62 (38-126) U/L Total Creatine Kinase 90 (30-135) U/L Troponin I < 0.012 < 0.012 (0.01-0.034) ng/mL Total Protein 7.8 (6.3-8.2) g/dL Albumin 4.6 (3.5-5.0) g/dL Globulin 3.2 (1.7-4.1) g/dL Albumin/Globulin Ratio 1.4 (1.0-2.8) Lipase 120 (23-300) U/L Point of Care Testing Test Results Negative Urine Dip Bedside Urine Glucose Negative Bedside Urine Bilirubin - Negative Bedside Urine Ketone - Negative Urine Specific [place] 1.020 Bedside Urine Occult Blood - Negative Bedside Urine pH 5.5 Bedside Urine Protein - Negative Bedside Urine Urobilinogen - Negative Bedside Urine Nitrite - Negative Bedside Urine Leukocytes - Negative Esterase MDM Narrative Medical decision making narrative: CC: Pain with deep breathing, palpitation Complicating co-morbidities: Optic neuropathy and is legally blind, 2 weeks post uterine ablation Data collected from: patient Social determinants of health that may influence the patients condition: Patient is has a caregiver who helps with issues related to her blindness Medical records reviewed: Medical records from internal medicine visit today are reviewed Differential considered: Acute coronary syndrome, anxiety attack, circadian dysrhythmia Exam documented above, pertinent findings include: Exam is entirely benign Lab Test results independently reviewed as above. Pertinent findings: CBC is entirely unremarkable Chemistries are reassuring Initial troponin and repeat at 2:00 a.m. are both undetectable Urine does not suggest urinary tract infection Independently reviewed EKG: Sinus bradycardia at a rate of 56 with no acute changes Imaging studies independently reviewed: Chest x-ray is unremarkable Discussion: 38-year-old woman presents with episodes of intermittent chest pain associated with heightened anxiety. Her medical workup today is reassuring there is no evidence of acute cardiac issues. We had a long discussion regarding circadian rhythms with her vision disturbance and medications that may help with her increasing overall anxiety as well as help with sleep. We talked about managing issues rather than any expectation of actually fixing issues. Please see detailed instructions below to highlight the extensive discussion Discharge Plan Departure Patient Disposition: Home Clinical Impression: Blind, Anxiety, Circadian dysregulation Activity Restrictions/Additional Instructions: Thank you for coming in today There is no evidence of acute heart abnormalities, heart attack, collapsed lung or life-threatening abnormalities to explain the increased chest pain and anxiety that you experienced today. We had a long discussion regarding some of your other symptoms and I do have some suggestions. Please make sure you review each of these with Aletha diez when you follow up with her on September 06 this scheduled 1. Circadian dysrhythmia. This is common in people who are blind as sunlight is not able to help regulate melatonin levels. Melatonin is not a sleeping pill. It is a hormone that helps regulate circadian rhythms. If melatonin levels are appropriate in your body it really does nothing. We also know that lower doses are actually appropriate and more helpful than higher doses. To help try and regulate circadian rhythms which can help with overall sleep which will then improve anxiety levels I am going to suggest that you begin taking 2 mg of melatonin approximately 1 hour prior to bed every single night. 2. Anxiety; your currently on sertraline which can be very helpful with anxiety. We talked about BuSpar/buspirone as a medication to directly treat chronic anxiety. This is not a benzodiazepine, we will not make you feel better within an hour of taking the medication. It needs to get up to levels in your body to help reduce overall anxiety levels. I am going to recommend that you try 7.5 mg twice a day. I would also recommend that you begin a log of anxiety levels during the day so that we can tell if it has making a difference 3. Regarding your sleep disturbance, early awakening, difficulty getting to sleep etcetera. It will be interesting to see if the melatonin is helpful. Avoiding stimulants as much as possible. Limiting coffee to 1 cup a day before noon. Avoiding recreational stimulants such as energy drinks, many weight loss medications also have stimulants that should be avoided. If you are choosing to use marijuana I would recommend avoiding sativa strains and focusing more on indica strains with higher levels of CBD. These may also help with controlling anxiety. After making the changes above it may be worth talking to your primary care doctor about using medication such as trazodone as an overt sleeping pill, this can help you stay asleep. If you find that you are getting worse or develop any new symptoms, please feel free to return to the emergency department for further evaluation. Prescriptions: New buspirone 7.5 mg tablet 7.5 mg PO BID Qty: 60 0RF No Action ibuprofen 600 mg tablet 600 mg PO Q6H PRN (Reason: Pain (Scale Score 4-6)) lidocaine 5 % adhesive patch,medicated 0 patch topical DAILY acetaminophen tablet See Rx Instructions PO PRN PRN (Reason: Pain (Scale Score 1-3)) Rx Instructions: Take 2 tabs 500mg each up to 3x/day as needed, ok to take with Ibuprofen orally as needed PRN; lamotrigine 25 mg tablet 25 mg PO BID Qty: 180 3RF sertraline 100 mg tablet 150 mg PO DAILY Qty: 135 3RF Rx Instructions: Take 1 1/2 tabs daily for depression and anxiety pregabalin [Lyrica] 100 mg capsule 100 mg PO BID cetirizine [Zyrtec] 10 mg tablet 10 mg PO DAILY PRN (Reason: allergies) nystatin 100,000 unit/gram powder 1 applic topical DAILY Qty: 30 1RF cholecalciferol (vitamin D3) 2,000 unit PO .QD Referrals: Aletha Diez ARNP [Primary Care Provider] - Stand Alone Forms: Patient Portal/API
[2023-08-31 19:04] VITALS: PULSE 66; RESP 18; O2SAT 98
--- NOTE | 2023-08-31 20:21 | PC.NURSE ---
Pt was discharge with perscription, faxed perscription to [facility]
--- NOTE | 2023-09-01 09:29 | PC.NURSE ---
Called [facility] for verbal RX. Jones, pharmacist reports prescription for buspirone already received and filled. Dose, frequency and qty verified. Paper RX put in shred bin.
== END 2023-08-31 19:12 | disposition home or self-care (01) ==
PROVIDERS: Emergency Medicine; Emergency Provider Emergency Medicine; Family Provider Family Medicine; PCP Nurse Practitioner
DX: H54.7 Unspecified visual loss (principal); F41.9 Anxiety disorder, unspecified; G47.29 Other circadian rhythm sleep disorder; R07.9 Chest pain, unspecified; R06.00 Dyspnea, unspecified
CPT/HCPCS: 36415; 71045; 80053; 81003; 81025; 82550; 83690; 83735; 84484; 85025; 85610; 85730; 93005; 93010; 99284

== ENCOUNTER → 2023-10-04 17:39 | Outpatient (CLI) | payer OTHER, MEDICAID, SELFPAY ==
[2023-10-04 18:28] LABS: Appearance Urine UA CLEAR; Bilirubin Urine UA NEGATIVE (NEGATIVE); Color Urine UA YELLOW; Glucose Urine UA NEGATIVE (Negative); Ketones Urine UA NEGATIVE (NEGATIVE); Leukocyte Esterase Urine UA NEGATIVE (NEGATIVE); Nitrite Urine UA NEGATIVE (Negative); Occult Blood Urine UA NEGATIVE (Negative); Protein Urine UA TRACE (Negative); Specific Gravity Urine UA >=1.030 (1.000-1.035)
[2023-10-04 18:37] LABS: pH Urine UA 5.5 (4.5-8.0)
[2023-10-04 18:50] LABS: Bacteria Urine Occasional (0-1); Culture Indicated Urine Cult Not Indicated; Mucus Urine 1+ (Negative); RBC Urine None Seen (0-5/HPF); Squamous Epithelial Cell Urine 0-1 /HPF (0-5/HPF); Urine Volume 10mL (spun); WBC Urine 0-1/HPF (0-5/HPF)
== END ==
LOC: LAB 17:40
PROVIDERS: Family Provider Family Medicine; PCP Nurse Practitioner; Referring Provider Nurse Practitioner; Visit Provider Nurse Practitioner
DX: R30.9 Painful micturition, unspecified (principal); N23 Unspecified renal colic
CPT/HCPCS: 81001

== ENCOUNTER → 2023-10-21 11:57 | Outpatient (CLI) | payer OTHER, MEDICAID, SELFPAY ==
--- NOTE | 2023-10-21 11:58 | DI.CT.S_ITS ---
PROCEDURE: CT KIDNEY URETER BLADDER (KUB) INDICATIONS: kidney pain TECHNIQUE: Axial sections were acquired from the lung bases to the pubic symphysis. Coronal and sagittal reformats were performed. For radiation dose reduction, the following was used: automated exposure control, adjustment of mA and/or kV according to patient size. COMPARISON: [facility], CT, CT ABDOMEN PELVIS W CON, 01/06/2022, 18:43. FINDINGS: Image quality: Diagnostic. Lower Chest: No significant findings. URINARY: Right Kidney: No stones or hydronephrosis. Right Ureter: No hydroureter. Left Kidney: No stones or hydronephrosis. Left Ureter: No hydroureter. Bladder: Decompressed, limiting evaluation. No stones. ABDOMEN: Liver: No contour-deforming solid mass. Gallbladder: Surgically absent. Biliary ducts: No biliary dilation. Pancreas: No ductal dilation. Spleen: Size is within normal limits. Adrenal Glands: No adrenal nodules. Stomach and Bowel: Normal colonic caliber, without significant wall thickening. Mild diverticulosis without evidence of acute diverticulitis. Peritoneum: No abnormal intraperitoneal fluid. No free air. Ventral Wall: Small fat containing umbilical hernia. Abdominal Nodes: No enlarged retroperitoneal or mesenteric lymph nodes. Vessels: Aorta and inferior vena cava are normal in size. PELVIS: Pelvic Organs: Left ovarian simple appearing cyst measuring 2.8 centimeters.. Pelvic Nodes: Unremarkable. Miscellaneous: No inguinal hernias are seen. Bones: Unremarkable. IMPRESSION: No obstructing stones or hydronephrosis. No acute findings within the abdomen or pelvis to explain patient's symptoms. Dictated by: Skip Gramajo M.D. on 10/21/2023 at 12:46 Approved by: Skip Gramajo M.D. on 10/21/2023 at 12:51
--- NOTE | 2023-10-21 11:58 | DI.US.S_ITS ---
PROCEDURE: US ABDOMEN COMPLETE INDICATIONS: abd pain, bloating, epigastric pain TECHNIQUE: Real-time scanning was performed of the abdominal and retroperitoneal organs, with image documentation. COMPARISON: None. FINDINGS: Liver: Liver is normal in size and homogeneous in echotexture. Gallbladder: Surgically absent. Biliary ducts: Intrahepatic bile ducts are non-dilated. Extrahepatic bile duct caliber measures 9 mm. Normal is 6-7 mm or less in diameter, or 10 mm or less post-cholecystectomy. Pancreas: Visualized portions of the pancreas are sonographically normal. Spleen: Spleen is normal in size and homogeneous in echotexture. Kidneys: Kidneys are normal in size and echotexture. Right kidney measures 11.5 cm long; left kidney measures 11.1 cm long. No hydronephrosis or nephrolithiasis. No solid masses. Aorta: Visualized aorta is normal in caliber at less than 3 cm. Iliacs: Not visualized. IVC: Intrahepatic inferior vena cava is patent. Miscellaneous: No free abdominal fluid. IMPRESSION: 1. Unremarkable abdominal ultrasound. Dictated by: Luiza Hobson M.D. on 10/21/2023 at 14:34 Approved by: Luiza Hobson M.D. on 10/21/2023 at 14:36
== END ==
PROVIDERS: Family Provider Family Medicine; PCP Nurse Practitioner; Referring Provider Nurse Practitioner; Visit Provider Nurse Practitioner
DX: R30.9 Painful micturition, unspecified (principal); N23 Unspecified renal colic; K42.9 Umbilical hernia without obstruction or gangrene; K57.90 Diverticulosis of intestine, part unspecified, without perforation or abscess without bleeding; N83.202 Unspecified ovarian cyst, left side; R14.0 Abdominal distension (gaseous); Z90.49 Acquired absence of other specified parts of digestive tract
CPT/HCPCS: 74176; 76700

== ENCOUNTER → 2024-04-12 10:32 | Outpatient (CLI) | payer OTHER, MEDICAID, SELFPAY ==
[2024-04-12 11:48] LABS: Add Manual Diff / Slide Review NO; Basophils Absolute Auto 100 /uL (0-100); Basophils Percent Auto 1.2 % (0-2); Eosinophils Absolute Auto 300 /uL (0-450); Eosinophils Percent Auto 3.2 % (2-4); Hematocrit 44.8 % (36-46); Hemoglobin 15.2 g/dL (12.0-16.0); Lymphocytes Absolute Auto 2900 /uL (1100-4500); Lymphocytes Percent Auto 34.1 % (25-40); Mean Corpuscular HGB Conc 33.9 % (30-36); Mean Corpuscular Volume 91.5 fL (80-100); Monocytes Absolute Auto 600 /uL (0-900); Monocytes Percent Auto 7.1 % (3-14); Neutrophils Absolute Auto 4600 /uL (1500-7000); Neutrophils Percent Auto 54.4 % (50-75); Platelet Count 355 X10^3/uL (150-400); Red Cell Distribution Width 12.6 % (11.6-14.8); White Blood Cell Count 8.5 X10^3/uL (4.5-11.0)
[2024-04-12 12:26] LABS: HEMOLYSIS < 15 (0-50); Iron 106 ug/dL (37-170)
[2024-04-12 12:29] LABS: Lipase 219 U/L (23-300)
[2024-04-12 12:37] LABS: Percent Iron Saturation 38 % (15-50); Total Iron Binding Capacity 281 ug/dL (265-497); Transferrin 243 mg/dL (206-381)
[2024-04-12 12:40] LABS: Alanine Aminotransferase 55 IU/L (<35); Albumin 4.5 g/dL (3.5-5.0); Albumin Globulin Ratio 1.8 (1.0-2.8); Alkaline Phosphatase 68 U/L (38-126); Aspartate Aminotransferase 42 IU/L (14-36); BUN Creatinine Ratio 11.4 (6-22); Bilirubin Total 0.5 mg/dL (0.2-1.3); Blood Urea Nitrogen 9 mg/dL (7-17); Calcium 9.7 mg/dL (8.4-10.2); Carbon Dioxide 23 mmol/L (22-32); Chloride 108 mmol/L (98-107); Estimated Glomerular Filt Rate > 60 mL/min (>60); Globulin 2.5 g/dL (1.7-4.1); Glucose 100 mg/dL (70-100); HEMOLYSIS < 15 (0-50); Potassium 4.5 mmol/L (3.4-5.1); Sodium 140 mmol/L (137-145)
[2024-04-12 12:48] LABS: Free T4, Direct Thyroxine 1.07 ng/dL (0.78-2.19)
[2024-04-12 13:01] LABS: Thyroid Stimulating Hormone 1.68 uIU/mL (0.47-4.68)
== END ==
PROVIDERS: Family Provider Family Medicine; PCP Family Medicine; Referring Provider Surgery; Visit Provider Nurse Practitioner
DX: R53.83 Other fatigue (principal); R10.9 Unspecified abdominal pain
CPT/HCPCS: 36415; 80053; 83540; 83550; 83690; 84439; 84443; 84481; 85025

== ENCOUNTER → 2024-05-10 11:08 | Outpatient (CLI) | payer OTHER, MEDICAID, SELFPAY ==
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
== END ==
PROVIDERS: Family Provider Family Medicine; PCP Family Medicine; Referring Provider Family Medicine; Visit Provider Family Medicine
DX: G89.29 Other chronic pain (principal); M79.604 Pain in right leg; V89.2XXA Person injured in unspecified motor-vehicle accident, traffic, initial encounter; Z87.81 Personal history of (healed) traumatic fracture; Z96.7 Presence of other bone and tendon implants
CPT/HCPCS: 73700; 99214

== ENCOUNTER 2024-05-18 14:10 | Day surgery (SDC) | payer OTHER, MEDICAID, SELFPAY ==
--- NOTE | 2024-05-18 | PATH_ITS ---
[facility] Accession Number: [id number] No. of containers..01 Tissue . 01 Material submitted: . gastrointestinal site - ANTRAL . 01 Diagnosis: ANTRUM, BIOPSY: Gastric mucosa with minimal chronic nonspecific inflammation. No Helicobacter pylori organisms identified on immunohistochemical evaluation. No intestinal metaplasia, dysplasia, or malignancy. . MRV 05/22/2024 1613 Local . 01 Electronically signed: . Libra Castorena MD, Pathologist NPI- [id number] . 01 Gross description: . ANTRAL: Received in formalin are 2 fragment(s) of jones, soft tissue measuring 0.2 x 0.2 x 0.2 cm to 0.6 x 0.2 x 0.2 cm submitted entirely in 1 cassette(s) /ELISE 05/19/2024 1949 Local . 01 Microscopic: . A. An immunohistochemical stain was performed to evaluate for Helicobacter organisms and is negative. The control stain showed appropriate reactivity. . * This test was developed and the performance characteristics were validated by [facility]. It has not been cleared or approved by the U.S. Food and Drug Administration. . 01 Pathologist provided ICD-10: K29.30 . 01 CPT . 377036, [id number] Specimen Comment: A courtesy copy of this report has been sent to [phone] Performed at: [address] [address], [place], [place] [id number] MD Marck Pulido MD Phone: [phone]
[2024-05-18 14:40] VITALS: BP 126/83; PULSE 93; RESP 16; TEMP 36.2; O2SAT 95
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
--- NOTE | 2024-05-18 15:29 | PM.OP.EC ---
Operative Date/Time/Diagnoses Date of procedure: 05/18/24 Time of procedure: 15:29 Pre-op diagnosis: Abdominal pain Post-op diagnosis: same Procedure & Clinicians Study performed: EGD and colonoscopy Same procedure as scheduled: Yes Surgeon: Joce Wilson Procedure Notes Procedure in detail: Surgeon: Joce Wilson MD Anesthesia: Niki Beal CRNA Procedure in detail: A timeout was performed. A bite blocked was placed and monitors were attached to the patient. The patient was positioned in the left lateral decubitus position. Sedation was administered. Once the patient was sedated the endoscope was inserted through the bite block and passed through the esophagus and stomach and into the duodenum. No abnormalities were seen in the duodenal. We then withdrew the scope into the stomach. There was mild antritis and random biopsies were taken with cold forceps from the antral mucosa. The endoscope was retroflexed and a very small hiatal hernia was noted. There were gastric contents in the stomach obscuring a portion of the gastric mucosa. The endoscope was straightned and withdrawn into the esophagus. No abnormalities were seen esophagus. EGD findings: Mild antritis, small hiatal hernia Next we repositioned the patient for a colonoscopy. A digital rectal exam was performed and was normal. The colonoscope was inserted and advanced to the cecum. The appendiceal orifice was identified and photographed. The scope was slowly withdrawn over greater than 6 minutes. No abnormalities were seen within the colon. The scope was retroflexed in the rectum and no abnormalities were seen. Colonoscopy findings: Normal colon Total procedural EBL: 5 mL Scope withdrawal time: 6 minutes Sedation minutes: 17 minutes Post-procedure Disposition: PACU
[2024-05-18 15:31] VITALS: BP 99/62; PULSE 96; RESP 14; TEMP 37.1; O2SAT 95
[2024-05-18 15:35] VITALS: BP 101/74; PULSE 84; RESP 18; O2SAT 98
[2024-05-18 15:41] VITALS: BP 119/76; PULSE 79; RESP 22; O2SAT 98
[2024-05-18 15:42] VITALS: BP 123/83; PULSE 81; RESP 12; O2SAT 100
== END 2024-05-18 15:53 | disposition home or self-care (01) ==
PROVIDERS: Family Provider Family Medicine; PCP Family Medicine; Referring Provider Family Medicine; Visit Provider Surgery
PROC: 0DJ08ZZ Inspection of Upper Intestinal Tract, Via Natural or Artificial Opening Endoscopic (ICD-10-PCS; CPT 45378; principal; 2024-05-18 15:15)
PROC: 0DJD8ZZ Inspection of Lower Intestinal Tract, Via Natural or Artificial Opening Endoscopic (ICD-10-PCS; CPT 45378; 2024-05-18 15:15)
DX: K29.50 Unspecified chronic gastritis without bleeding (principal); K44.9 Diaphragmatic hernia without obstruction or gangrene
CPT/HCPCS: 45378; 43239; J2704

== ENCOUNTER → 2024-09-20 08:54 | Outpatient (CLI) | payer OTHER, SELFPAY ==
--- NOTE | 2024-09-20 08:56 | DI.MG.S_ITS ---
US breast RT limited, MM diagnostic mammo BI: 09/20/2024 BI-RADS: 2 CLINICAL: 39-year old female for bilateral diagnostic mammogram and right diagnostic breast ultrasound. The patient presents for 12 month interval follow-up. Tyrer-Cuzick lifetime risk of 43.3%. Current reported family history of breast cancer: maternal grandmother, mother and maternal aunt. PRIOR EXAMS 06/23/2023, 11/25/2022, 09/23/2022, 07/09/2022. MAMMOGRAPHY TECHNIQUE: 2D and 3D (tomosynthesis) digital mammographic views obtained, with additional images as needed for full coverage. Current study was also evaluated with a Computer Aided Detection (CAD) system. ULTRASOUND TECHNIQUE TARGETED Right Breast Ultrasound: Real-time ultrasound exam was performed focused to area of clinical and/or imaging concern. DENSITY B. There are scattered areas of fibroglandular density. MAMMOGRAPHY FINDINGS Bilateral: No suspicious mass, asymmetry, microcalcification, or other abnormality seen. ULTRASOUND FINDINGS Right: Upper Outer at 11:00, 4 cm from nipple, measuring 0.4 x 0.2 x 0.4 cm: There is a complicated cyst showing no posterior acoustic features that is unchanged in size and appearance. This finding is unchanged dating back to ultrasound 07/09/2022 (previously reported as 11:00, 2 cm from the nipple). Given greater than two years of stability, this is consistent with a benign etiology. IMPRESSION: Right * No evidence of malignancy with benign findings. Left * No evidence of malignancy. RECOMMENDATIONS * This patient has an elevated lifetime risk for breast cancer of over 20%. Recommend consideration for annual screening breast MRI as an adjunct to screening mammography. This is to be offset by approximately 6 months from patient's mammogram. Bilateral * Annual screening mammography in one year. OVERALL ASSESSMENT CATEGORY BI-RADS-2: Benign. The [employer] recommends annual screening mammography beginning at age 40 for women with average risk of breast cancer. ELECTRONICALLY SIGNED: Katie Hay M.D. on 09/20/2024 at 11:42:38 AM PT Interpreting Station ID: [id number]
== END ==
PROVIDERS: Family Provider Family Medicine; PCP Family Medicine; Referring Provider Family Medicine; Visit Provider Family Medicine
DX: R92.8 Other abnormal and inconclusive findings on diagnostic imaging of breast (principal); Z80.3 Family history of malignant neoplasm of breast; N60.01 Solitary cyst of right breast
CPT/HCPCS: 76642; 77066; G0279

== ENCOUNTER → 2024-11-08 08:14 | Outpatient (CLI) | payer OTHER, SELFPAY ==
[2024-11-08 10:04] LABS: Follicle Stimulating Hormone 2.46 mIU/mL
[2024-11-08 10:19] LABS: TSH w/ Reflex to FT4 1.75 uIU/mL (0.47-4.68)
[2024-11-10 10:36] LABS: Estrogen 452 pg/mL (.)
== END ==
PROVIDERS: Family Provider Family Medicine; PCP Family Medicine; Referring Provider Family Medicine; Visit Provider Family Medicine
DX: Z83.49 Family history of other endocrine, nutritional and metabolic diseases (principal)
CPT/HCPCS: 36415; 82672; 83001; 84144; 84443; 84999

== ENCOUNTER → 2025-01-18 08:02 | Outpatient (CLI) | payer OTHER, SELFPAY ==
[2025-01-18 10:18] LABS: Iron 89 ug/dL (37-170)
[2025-01-18 10:28] LABS: Total Iron Binding Capacity 275 ug/dL (265-497)
[2025-01-18 10:58] LABS: Ferritin 49 ng/mL (6-137)
== END ==
PROVIDERS: Family Provider Family Medicine; PCP Family Medicine; Referring Provider Family Medicine; Visit Provider Internal Medicine Sleep Medicine
DX: E83.10 Disorder of iron metabolism, unspecified (principal); G25.81 Restless legs syndrome; G47.30 Sleep apnea, unspecified
CPT/HCPCS: 36415; 82728; 83540; 83550

== ENCOUNTER → 2025-03-12 10:40 | Outpatient (CLI) | payer OTHER, SELFPAY | PROVIDERS: Family Provider Family Medicine; PCP Family Medicine; Visit Provider Family Medicine | DX: A63.0 Anogenital (venereal) warts (principal); B37.9 Candidiasis, unspecified | CPT/HCPCS: 87491; 87591; 87661; 87798; 87801 ==

== ENCOUNTER → 2025-05-30 07:47 | Outpatient (CLI) | payer OTHER, SELFPAY ==
[2025-05-30 09:47] LABS: HEMOLYSIS < 15 (0-50); Iron 98 ug/dL (37-170)
[2025-05-30 10:00] LABS: Percent Iron Saturation 37 % (15-50); Total Iron Binding Capacity 265 ug/dL (265-497); Transferrin 235 mg/dL (206-381)
== END ==
PROVIDERS: Family Provider Family Medicine; PCP Family Medicine; Referring Provider Internal Medicine Sleep Medicine; Visit Provider Internal Medicine Sleep Medicine
DX: E83.10 Disorder of iron metabolism, unspecified (principal); G25.81 Restless legs syndrome; G47.00 Insomnia, unspecified; G47.33 Obstructive sleep apnea (adult) (pediatric); G47.52 REM sleep behavior disorder; Z71.89 Other specified counseling
CPT/HCPCS: 36415; 83540; 83550